=== PATIENT | male | born 1945 | race Caucasian/White ===

== ENCOUNTER 2021-10-05 16:59 | Inpatient (IN) | payer MEDICARE ==
[~2021-10-05] VITALS: Ht 180.3 cm; Wt 73.6 kg
[2021-10-05 17:21] LABS: BASO # 0.1 x10^3/uL (0.0-0.2); BASO % 1 % (0-3); EOS # 0.1 x10^3/uL (0.0-0.7); EOS % 1 % (0-3); HEMATOCRIT 43.1 % (39.0-53.0); HEMOGLOBIN 14.5 g/dL (13.0-17.5); LYMPH # 1.5 x10^3/uL (1.0-4.8); LYMPH % 26 % (24-48); MEAN CORPUSCULAR HEMOGLOBIN 34 pg (25-35); MEAN CORPUSCULAR HGB CONC 34 g/dL (31-37); MEAN CORPUSCULAR VOLUME 100 fL (79-100); MONO # 0.9 x10^3/uL (0.0-1.1); MONO % 15 % (0-9); NEUT # 3.4 x10^3/uL (1.8-7.7); NEUT % 58 % (31-73); PLATELET COUNT 289 x10^3/uL (140-400); RED BLOOD COUNT 4.32 x10^6/uL (4.30-5.70); RED CELL DISTRIBUTION WIDTH 14.7 % (11.5-14.5); WHITE BLOOD COUNT 5.9 x10^3/uL (4.0-11.0)
--- NOTE | 2021-10-05 17:25 | RAD ---
EXAM: AP View of the chest DATE: 10/05/2021 5:17 PM INDICATION: Reason: SOA / Spl. Instructions: / History: COMPARISON: No Prior FINDINGS: Heart is mildly enlarged. Aortic calcifications are seen. Bilateral perihilar and lung base airspace opacities likely consolidative process such as pneumonia. Small pleural effusions. No pneumothorax. IMPRESSION: Cardiac megaly with bilateral parenchymal opacities and pleural effusions may be seen with pulmonary edema. Multifocal consolidative process such as pneumonia could also have this appearance but is felt to be less likely. Electronically signed by: Jak Ruelas MD (10/05/2021 5:22 PM) [facility]
[2021-10-05 17:34] LABS: CALCIUM 8.4 mg/dL (8.5-10.1); CREATININE 0.9 mg/dL (0.7-1.3); GFR 82.3; POTASSIUM 4.1 mmol/L (3.5-5.1)
[2021-10-05 17:39] LABS: ALBUMIN 3.4 g/dL (3.4-5.0); ALBUMIN/GLOBULIN RATIO 0.9 (1.0-1.7); MAGNESIUM 2.1 mg/dL (1.8-2.4); TOTAL BILIRUBIN 0.4 mg/dL (0.2-1.0); TOTAL PROTEIN 7.2 g/dL (6.4-8.2)
--- NOTE | 2021-10-05 17:40 | PHYS DOC ---
Past Medical History Past Surgical History: Splenectomy, Other Additional Past Surgical Histo: L leg, (UZMA PICHARDO DO) Smoking Status: Never Smoker Alcohol Use: None (UZMA PICHARDO DO) General Adult EDM: Chief Complaint: SHORTNESS OF BREATH HPI: HPI: Patient is a 75 year old male who present to ER for evaluation of cough, trouble breathing off and on for 1 month. Patient went to see a doctor today due to trouble breathing, they did an EKG in the clinic, showed left bundle branch block so they sent him here for evaluation. Patient denies any chest pain, no abdominal pain, no nausea vomiting. Patient denies any history of heart problem. Patient is not a smoker. Patient said he was vaccinated for COVID-19 (UZMA PICHARDO DO) Review of Systems: Review of Systems: Constitutional: Denies fever or chills. [] Eyes: Denies change in visual acuity. [] HENT: Denies nasal congestion or sore throat. [] Respiratory: Positive for cough and trouble breathing. Cardiovascular: Denies chest pain or edema. [] GI: Denies abdominal pain, nausea, vomiting, bloody stools or diarrhea. [] : Denies dysuria. [] Musculoskeletal: Denies back pain or joint pain. [] Integument: Denies rash. [] Neurologic: Denies headache, focal weakness or sensory changes. [] Endocrine: Denies polyuria or polydipsia. [] Lymphatic: Denies swollen glands. [] Psychiatric: Denies depression or anxiety. [] (UZMA PICHARDO DO) Heart Score: C/O Chest Pain: N/A Risk Factors: Risk Factors: DM, Current or recent (<one month) smoker, HTN, HLP, family history of CAD, obesity. Risk Scores: Score 0 - 3: 2.5% MACE over next 6 weeks - Discharge Home Score 4 - 6: 20.3% MACE over next 6 weeks - Admit for Clinical Observation Score 7 - 10: 72.7% MACE over next 6 weeks - Early Invasive Strategies (UZMA PICHARDO DO) Allergies: Allergies: Allergies Coded Allergies Type Severity Reaction Last Updated Verified No Known Drug Allergies 10/05/21 No (UZMA PICHARDO DO) Physical Exam: PE: Constitutional: Well developed, well nourished, no acute distress, non-toxic appearance. [] HENT: Normocephalic, atraumatic, bilateral external ears normal, oropharynx moist, no oral exudates, nose normal. [] Eyes: PERRLA, EOMI, conjunctiva normal, no discharge. [] Neck: Normal range of motion, no tenderness, supple, no stridor. [] Cardiovascular:Heart rate regular rhythm, no murmur [] Lungs & Thorax: Bilateral breath sounds with crackles at lung bases to auscultation Abdomen: Bowel sounds normal, soft, no tenderness, no masses, no pulsatile masses. [] Skin: Warm, dry, no erythema, no rash. [] Back: No tenderness, no CVA tenderness. [] Extremities: No tenderness, no cyanosis, no clubbing, ROM intact, no edema. [] Neurologic: Alert and oriented X 3, normal motor function, normal sensory function, no focal deficits noted. [] Psychologic: Affect normal, judgement normal, mood normal. [] (UZMA PICHARDO DO) PE: Constitutional: Well developed, well nourished, no acute distress HENT: Normocephalic, atraumatic Eyes: Conjunctiva normal, no discharge Neck: Normal range of motion, supple Lungs & Thorax: No respiratory distress, equal chest rise and fall Abdomen: Soft, no tenderness Skin: Warm, dry, no erythema, no rash Extremities: No tenderness, ROM intact, trace BLE edema Neurologic: Alert and oriented X 3, no focal deficits noted Psychologic: Affect normal, judgment normal (HAO LUNDBERG DO) Current Patient Data: Labs: Laboratory Tests Test 10/05/21 17:08 White Blood Count 5.9 x10^3/uL (4.0-11.0) Red Blood Count 4.32 x10^6/uL (4.30-5.70) Hemoglobin 14.5 g/dL (13.0-17.5) Hematocrit 43.1 % (39.0-53.0) Mean Corpuscular Volume 100 fL (79-100) Mean Corpuscular Hemoglobin 34 pg (25-35) Mean Corpuscular Hemoglobin Concent 34 g/dL (31-37) Red Cell Distribution Width 14.7 % (11.5-14.5) H Platelet Count 289 x10^3/uL (140-400) Neutrophils (%) (Auto) 58 % (31-73) Lymphocytes (%) (Auto) 26 % (24-48) Monocytes (%) (Auto) 15 % (0-9) H Eosinophils (%) (Auto) 1 % (0-3) Basophils (%) (Auto) 1 % (0-3) Neutrophils # (Auto) 3.4 x10^3/uL (1.8-7.7) Lymphocytes # (Auto) 1.5 x10^3/uL (1.0-4.8) Monocytes # (Auto) 0.9 x10^3/uL (0.0-1.1) Eosinophils # (Auto) 0.1 x10^3/uL (0.0-0.7) Basophils # (Auto) 0.1 x10^3/uL (0.0-0.2) Sodium Level 133 mmol/L (136-145) L Potassium Level 4.1 mmol/L (3.5-5.1) Chloride Level 96 mmol/L (98-107) L Carbon Dioxide Level 27 mmol/L (21-32) Anion Gap 10 (6-14) Blood Urea Nitrogen 7 mg/dL (8-26) L Creatinine 0.9 mg/dL (0.7-1.3) Estimated GFR (Cockcroft-Gault) 82.3 BUN/Creatinine Ratio 8 (6-20) Glucose Level 102 mg/dL (70-99) H Calcium Level 8.4 mg/dL (8.5-10.1) L Magnesium Level Pending Total Bilirubin Pending Aspartate Amino Transferase (AST) Pending Alanine Aminotransferase (ALT) Pending Alkaline Phosphatase Pending Total Protein Pending Albumin Pending Albumin/Globulin Ratio Pending Laboratory Tests 10/05/21 17:08 Laboratory Tests 10/05/21 17:08 Vital Signs: Vital Signs Date Time Temp Pulse Resp B/P (MAP) Pulse Ox O2 Delivery O2 Flow Rate FiO2 10/05/21 16:59 97.7 79 16 164/115 (131) 97 Room Air 97.7 (UZMA PICHARDO DO) EKG: EKG: EKG was done at 1704, heart rate 108 bpm, sinus tachycardia, left bundle branch block. (UZMA PICHARDO DO) Radiology/Procedures: Radiology/Procedures: [][facility] [address] [place] [address] IMAGING REPORT Signed PATIENT: JESSICA MALDONADO BACCOUNT: [id number] : 1945 LOCATION: ER AGE: 75 SEX: M EXAM STATUS: PRE ER ORD. PHYSICIAN: UZMA PICHARDO DO REASON: SOA PROCEDURE: PORTABLE CHEST 1V EXAM: AP View of the chest DATE: 10/05/2021 5:17 PM INDICATION: Reason: SOA / Spl. Instructions: / History: COMPARISON: No Prior FINDINGS: Heart is mildly enlarged. Aortic calcifications are seen. Bilateral perihilar and lung base airspace opacities likely consolidative process such as pneumonia. Small pleural effusions. No pneumothorax. IMPRESSION: Cardiac megaly with bilateral parenchymal opacities and pleural effusions may be seen with pulmonary edema. Multifocal consolidative process such as pneumonia could also have this appearance but is felt to be less likely. Electronically signed by: Jak Hogan MD (10/05/2021 5:22 PM) [facility] DICTATED and SIGNED BY: JAK HOGAN MD DATE: 10/05/21 [id number] (UZMA PICHARDO DO) Radiology/Procedures: PROCEDURE: CT ANGIOGRAPHY CHEST CTA CHEST History: Shortness of breath. Cough. Technique: CT of the chest was performed with intravenous contrast. PE protocol. Maximum intensity projection coronal and sagittal reconstructions were perform ed. Exposure: One or more of the following individualized dose reduction techniques were utilized for this examination: 1. Automated exposure control 2. Adjustment of the mA and/or kV according to patient size 3. Use of iterative reconstruction technique. Comparison: None Findings: Chest: No central pulmonary embolism. Evaluation of distal pulmonary emboli is degraded by respiratory motion. The aorta is not opacified with contrast for evaluation. Mild atheromatous plaque within the aorta. Coronary artery calcifications. No pathologic lymphadenopathy. Large left and moderate right pleural effusion with adjacent atelectasis. Left lower lobe consolidations and groundglass opacities. No pneumothorax. Calcified pulmonary nodules, likely prior granulomatous disease. Bronchial wall thi ckening. Upper abdomen: Reflux of contrast into the IVC and hepatic veins. Postoperative changes left upper quadrant. 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 Impression: 1. No central pulmonary embolus although evaluation for distal emboli is degraded by respiratory motion. 2. Large left and moderate right pleural effusion with adjacent atelectasis. 3. Left lower lobe consolidations and groundglass opacities, may represent pneumonia or additional atelectasis. Recommend follow-up to ensure resolution. 4. Reflux of contrast into the IVC and hepatic veins, may indicate right heart dysfunction. Electronically signed by: You Ruff DO (10/05/2021 6:30 PM) [facility] (HAO LUNDBERG DO) Course & Med Decision Making: Course & Med Decision Making Pertinent Labs and Imaging studies reviewed. (See chart for details) Patient is a 75-year-old male who present to ER for evaluation of cough and trouble breathing off and on for 1 month. Patient says sometimes when he coughed he noticed some trace of blood IN THE SPIT. Patient denies any history of coronary ARTERY disease. EKG showed left bundle branch block today. Patient denies any chest pain, chest x-ray show evidence of pulmonary edema and cardiomegaly. Patient IS not hypoxic. I will obtain a CT angiogram of his chest for further evaluation treatment. Patient care was endorsed to the incoming physician at shift change Dr. Hao Lundberg. (UZMA PICHARDO DO) Course & Med Decision Making 1800-signout received from Dr. Pichardo for patient sent from PCPs office secondary to abnormal EKG. EKG had appeared to note new onset left bundle branch block. Patient has had 3-week history of progressive shortness of breath/dyspnea with exertion. Labs had previously been obtained with significantly elevated BNP. Initial troponin within normal limits. D-dimer elevated. CTA chest pending. Patient seen and evaluated by myself. CTA chest without signs of acute PE. Pleural effusions and signs of vascular congestion noted. Lasix and aspirin therefore provided. Patient requiring admission for further evaluation and treatment with cardiology consultation. Discussed with Dr. Butler (hospitalist) who is in agreement with admission. Consultation to cardiology ordered. Discussed findings and plan with patient and family, who acknowledge understanding and agreement. (HAO LUNDBERG DO) Dragon Disclaimer: Dragon Disclaimer: This electronic medical record was generated, in whole or in part, using a voice recognition dictation system. (UZMA PICHARDO DO) Departure Departure Impression: Primary Impression: New onset of congestive heart failure Additional Impression: Left bundle branch block (LBBB) on electrocardiogram Disposition: 09 ADMITTED INPATIENT Admitting Physician: DEISY Mao) (HAO LUNDBERG DO) Condition: STABLE UZMA PICHARDO DO Oct 05, 2021 17:39 HAO LUNDBERG DO Oct 05, 2021 18:26
[2021-10-05] MEDS ORDERED: IOHEXOL 350 MG/ML 100 ML VIAL. IV ONE (18:00)
--- NOTE | 2021-10-05 18:32 | RAD ---
CTA CHEST History: Shortness of breath. Cough. Technique: CT of the chest was performed with intravenous contrast. PE protocol. Maximum intensity pr ojection coronal and sagittal reconstructions were performed. Exposure: One or more of the following individualized dose reduction techniques were utilized for thi s examination: 1. Automated exposure control 2. Adjustment of the mA and/or kV according to patient size 3. Use of iterative reconstruction technique. Comparison: None Findings: Chest: No central pulmonary embolism. Evaluation of distal pulmonary emboli is degraded by respirator y motion. The aorta is not opacified with contrast for evaluation. Mild atheromatous plaque within th e aorta. Coronary artery calcifications. No pathologic lymphadenopathy. Large left and moderate right pleural effusion with adjacent atelectasis. Left lower lobe consolidati ons and groundglass opacities. No pneumothorax. Calcified pulmonary nodules, likely prior granulomato us disease. Bronchial wall thickening. Upper abdomen: Reflux of contrast into the IVC and hepatic veins. Postoperative changes left upper qu adrant. 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 Impression: 1. No central pulmonary embolus although evaluation for distal emboli is degraded by respiratory mot ion. 2. Large left and moderate right pleural effusion with adjacent atelectasis. 3. Left lower lobe consolidations and groundglass opacities, may represent pneumonia or additional a telectasis. Recommend follow-up to ensure resolution. 4. Reflux of contrast into the IVC and hepatic veins, may indicate right heart dysfunction. Electronically signed by: You Ruff DO (10/05/2021 6:30 PM) [facility]
[2021-10-05] MEDS ORDERED: ASPIRIN ENTERIC COATED 325 MG TABLET.DR. PO ONE (19:15)
[2021-10-05] MEDS ORDERED: FUROSEMIDE 40 MG/4 ML VIAL. IVP ONE (19:15)
[2021-10-05 20:10] VITALS: BP 156/91
[2021-10-05 22:31] VITALS: BP 113/73
--- NOTE | 2021-10-05 23:03 | EKG ---
[facility] [address] [place] [address] Test Date: 2021-10-05 Test Time: 17:04:18 Pat Name: JESSICA MALDONADO Department: Room: 648 1 Gender: M Engineering Drafter: : 1945 Requested By: UZMA PICHARDO Order Number: [id number] Reading MD: Lloyd Herrera Measurements Intervals [place] Rate: 108 P: 15 DE: 150 QRS: -8 QRSD: 110 T: 167 QT: 348 QTc: 470 Interpretive Statements SINUS TACHYCARDIA LEFT ATRIAL ABNORMALITY LEFTWARD AXIS QRS(T) CONTOUR ABNORMALITY CONSISTENT WITH ANTEROSEPTAL INFARCT PROBABLY OLD LEFT VENTRICULAR HYPERTROPHY WITH REPOLARIZATION ABNORMALITIES Electronically Signed On 10-07-2021 18:44:24 [employer] by Lloyd Herrera
--- NOTE | 2021-10-05 23:53 | PDOC1 ---
History and Physical Date of Service: DOS: DATE: 10/05/21 TIME: 23:53 Chief Complaint: Chief Complain: Shortness of breath History of Present Illness: HPI: Patient is 75-year-old white male presented to the emergency room today due to 1 month history of difficulty breathing and nonproductive cough. Patient says symptoms have been worsening. Particularly over the past week. He went to his primary doctor today and an EKG was done that showed a left bundle branch block and he was sent here for further evaluation. Shortness of breath patient pretty asymptomatic no chest pain. Says he sometimes gets swelling in his calves but he was not having any at the moment. Has received all Covid vaccines. No history of heart problems he is aware of. In the ER work-up showed elevated BNP and chest x-ray showed bilateral pleural effusions and some hepatic reflux concerning for right heart disease. Admitted for further work-up. Past Medical/Surgical History: PMH/PSH: Splenectomy Allergies: Allergies: Coded Allergies: No Known Drug Allergies (Unverified , 10/05/21) Family History: Family History: Denies any known Social History: Social History: Denies alcohol tobacco drug use Current Medications: Current Medications Current Medications Iohexol (Omnipaque 350 Mg/ml) 100 ml 1X ONCE IV Last administered on 10/05/21at 18:12; Start 10/05/21 at 18:00; Stop 10/05/21 at 18:01; Status DC Furosemide (Lasix) 40 mg 1X ONCE IVP Last administered on 10/05/21at 19:19; Start 10/05/21 at 19:15; Stop 10/05/21 at 19:16; Status DC Aspirin (Ecotrin) 325 mg 1X ONCE PO Last administered on 10/05/21at 19:18; Start 10/05/21 at 19:15; Stop 10/05/21 at 19:16; Status DC Influenza Virus Vaccine Quadrival (Flulaval Quad [id number] Syringe) 0.5 ml ONCE ONCE VAX IM ; Start 10/06/21 at 09:00; Stop 10/06/21 at 09:01 Ondansetron HCl (Zofran) 4 mg PRN Q6HRS PRN IVP NAUSEA/VOMITING; Start 10/06/21 at 00:00; Status UNV Calcium Carbonate/ Glycine (Tums) 500 mg PRN Q3HRS PRN PO UPSET STOMACH; Start 10/06/21 at 00:00; Status UNV Zolpidem Tartrate (Ambien) 5 mg PRN QHS PRN PO INSOMNIA, MAY REPEAT IN 1HR; Start 10/06/21 at 00:00; Status UNV Info (Non-Icu Electrolyte Protocol) 1 ea PRN DAILY PRN MC SEE COMMENTS; Start 10/06/21 at 00:00; Status UNV Oxycodone/ Acetaminophen (Percocet 5/325) 1 tab PRN Q4HRS PRN PO MILD PAIN, 1ST CHOICE; Start 10/06/21 at 00:00; Status UNV Oxycodone/ Acetaminophen (Percocet 5/325) 2 tab PRN Q4HRS PRN PO MODERATE PAIN, SEVERE PAIN; Start 10/06/21 at 00:00; Status UNV Acetaminophen (Tylenol) 650 mg PRN Q6HRS PRN PO Headaches, Temp > 101.5F; Start 10/06/21 at 00:00; Status UNV Senna/Docusate Sodium (Senna Plus) 1 tab BID PO ; Start 10/06/21 at 09:00; Status UNV Heparin Sodium (Porcine) (Heparin Sodium) 5,000 unit Q8HRS SQ ; Start 10/06/21 at 06:00; Status UNV ROS: Review of Systems Review of System Unless noted in HPI 14 point review systems was negative Physical Exam: Vital Signs: Vital Signs Date Time Temp Pulse Resp B/P (MAP) Pulse Ox O2 Delivery O2 Flow Rate FiO2 10/05/21 22:31 98.1 98 18 113/73 (86) 96 Room Air 98.1 Physcial Exam: GEN: No apparent distress. Alert and oriented HEENT: Normal cephalic, atraumatic, external auditory canals are patent EYES: Extraocular muscles are intact, pupil are equally round and reactive to light and accommodation MUSCULOSKELETAL: Well developed , well nourished, good range of motion ENDOCRINE: No thyromegaly was palpated LYMPHATICS: No cervical chain or axillary nodes were noted HEMATOPOIETIC: No bruising NECK: Supple, no JVD, no thyromegaly was noted LUNGS: Clear to auscultation in all lung lopez without rhonchi or wheezing HEART: RRR, S!, S2 present. Peripheral pulses intact, no obvious murmurs noted ABDOMEN: Soft, nontender. Positive bowel sounds, no organomegaly, normal bowel sounds EXTREMITIES: Without clubbing, cyanosis, or edema. Pedal pulses intact. Negative Homans sign NEUROLOGIC: Normal speech and tone. A&O x 3, moves all extremities, no obvious focal deficits PSYCHIATRIC: Normal affect, normal mood. Stable SKIN: No ulcerations or rashes, good skin turgor, no jaundice VASCULAR: Good capillary refill, neurovascular bundle appears to be intact Labs: Labs: Laboratory Tests Test 10/05/21 15:14 10/05/21 17:08 Lactic Acid Level 1.2 mmol/L (0.4-2.0) White Blood Count 5.9 x10^3/uL (4.0-11.0) Red Blood Count 4.32 x10^6/uL (4.30-5.70) Hemoglobin 14.5 g/dL (13.0-17.5) Hematocrit 43.1 % (39.0-53.0) Mean Corpuscular Volume 100 fL (79-100) Mean Corpuscular Hemoglobin 34 pg (25-35) Mean Corpuscular Hemoglobin Concent 34 g/dL (31-37) Red Cell Distribution Width 14.7 % (11.5-14.5) Platelet Count 289 x10^3/uL (140-400) Neutrophils (%) (Auto) 58 % (31-73) Lymphocytes (%) (Auto) 26 % (24-48) Monocytes (%) (Auto) 15 % (0-9) Eosinophils (%) (Auto) 1 % (0-3) Basophils (%) (Auto) 1 % (0-3) Neutrophils # (Auto) 3.4 x10^3/uL (1.8-7.7) Lymphocytes # (Auto) 1.5 x10^3/uL (1.0-4.8) Monocytes # (Auto) 0.9 x10^3/uL (0.0-1.1) Eosinophils # (Auto) 0.1 x10^3/uL (0.0-0.7) Basophils # (Auto) 0.1 x10^3/uL (0.0-0.2) D-Dimer (Gracie) 1.51 ug/mlFEU (0.00-0.50) Sodium Level 133 mmol/L (136-145) Potassium Level 4.1 mmol/L (3.5-5.1) Chloride Level 96 mmol/L (98-107) Carbon Dioxide Level 27 mmol/L (21-32) Anion Gap 10 (6-14) Blood Urea Nitrogen 7 mg/dL (8-26) Creatinine 0.9 mg/dL (0.7-1.3) Estimated GFR (Cockcroft-Gault) 82.3 BUN/Creatinine Ratio 8 (6-20) Glucose Level 102 mg/dL (70-99) Calcium Level 8.4 mg/dL (8.5-10.1) Magnesium Level 2.1 mg/dL (1.8-2.4) Total Bilirubin 0.4 mg/dL (0.2-1.0) Aspartate Amino Transf (AST/SGOT) 24 U/L (15-37) Alanine Aminotransferase (ALT/SGPT) 33 U/L (16-63) Alkaline Phosphatase 74 U/L (46-116) Troponin I High Sensitivity 18 ng/L (4-75) JT-Pwh-C-Type Natriuretic Peptide 21413 pg/mL (0-449) Total Protein 7.2 g/dL (6.4-8.2) Albumin 3.4 g/dL (3.4-5.0) Albumin/Globulin Ratio 0.9 (1.0-1.7) Laboratory Tests Test 10/05/21 15:14 10/05/21 17:08 Lactic Acid Level 1.2 mmol/L (0.4-2.0) White Blood Count 5.9 x10^3/uL (4.0-11.0) Red Blood Count 4.32 x10^6/uL (4.30-5.70) Hemoglobin 14.5 g/dL (13.0-17.5) Hematocrit 43.1 % (39.0-53.0) Mean Corpuscular Volume 100 fL (79-100) Mean Corpuscular Hemoglobin 34 pg (25-35) Mean Corpuscular Hemoglobin Concent 34 g/dL (31-37) Red Cell Distribution Width 14.7 % (11.5-14.5) Platelet Count 289 x10^3/uL (140-400) Neutrophils (%) (Auto) 58 % (31-73) Lymphocytes (%) (Auto) 26 % (24-48) Monocytes (%) (Auto) 15 % (0-9) Eosinophils (%) (Auto) 1 % (0-3) Basophils (%) (Auto) 1 % (0-3) Neutrophils # (Auto) 3.4 x10^3/uL (1.8-7.7) Lymphocytes # (Auto) 1.5 x10^3/uL (1.0-4.8) Monocytes # (Auto) 0.9 x10^3/uL (0.0-1.1) Eosinophils # (Auto) 0.1 x10^3/uL (0.0-0.7) Basophils # (Auto) 0.1 x10^3/uL (0.0-0.2) D-Dimer (Gracie) 1.51 ug/mlFEU (0.00-0.50) Sodium Level 133 mmol/L (136-145) Potassium Level 4.1 mmol/L (3.5-5.1) Chloride Level 96 mmol/L (98-107) Carbon Dioxide Level 27 mmol/L (21-32) Anion Gap 10 (6-14) Blood Urea Nitrogen 7 mg/dL (8-26) Creatinine 0.9 mg/dL (0.7-1.3) Estimated GFR (Cockcroft-Gault) 82.3 BUN/Creatinine Ratio 8 (6-20) Glucose Level 102 mg/dL (70-99) Calcium Level 8.4 mg/dL (8.5-10.1) Magnesium Level 2.1 mg/dL (1.8-2.4) Total Bilirubin 0.4 mg/dL (0.2-1.0) Aspartate Amino Transf (AST/SGOT) 24 U/L (15-37) Alanine Aminotransferase (ALT/SGPT) 33 U/L (16-63) Alkaline Phosphatase 74 U/L (46-116) Troponin I High Sensitivity 18 ng/L (4-75) VB-Wgv-E-Type Natriuretic Peptide 67246 pg/mL (0-449) Total Protein 7.2 g/dL (6.4-8.2) Albumin 3.4 g/dL (3.4-5.0) Albumin/Globulin Ratio 0.9 (1.0-1.7) Assessment/Plan Assessment/Plan Ongoing shortness of breath secondary to possible new onset congestive heart failure, bundle branch block. -Worsening shortness of breath for 1 month. Work-up here showing pleural effusions in his lungs. -Received dose of 40 IV Lasix in the emergency room. Will give 1 more overnight -Empiric antibiotics based upon imaging mild concern for a bacterial pneumonia -Cardiology consult -Echo ordered -Pulm consult regarding pleural effusions -DVT prophylaxis Cardiac diet Justifications for Admission Other Justification SHIKHA RODRIGUEZ MD Oct 05, 2021 23:53
[2021-10-06] VITALS (9 sets, daily range): BP systolic 113–151; BP diastolic 73–98
[2021-10-06] MEDS ORDERED: ELECTROLYTE (NON-ICU) PROTOCOL. MC PRN
[2021-10-06] MEDS ORDERED: cefTRIAXone IV Push 1 GM VIAL. IVP SCH
[2021-10-06] MEDS ORDERED: ZOLPIDEM 5 MG TABLET. PO PRN
[2021-10-06] MEDS ORDERED: ONDANSETRON PF 4 MG/2 ML VIAL. IVP PRN
[2021-10-06] MEDS ORDERED: CALCIUM CARBONATE 500 MG TAB.CHEW PO PRN
[2021-10-06] MEDS ORDERED: ACETAMINOPHEN 325 MG TABLET. PO PRN
[2021-10-06] MEDS ORDERED: oxyCODONE/APAP 5/325 1 TAB TABLET PO PRN ×2
[2021-10-06] MEDS: HEPARIN for SUB-Q USE 5,000 UNIT/ML VIAL. SQ SCH ×3 (06:10→21:47)
[2021-10-06] MEDS ORDERED: FLU VACC QUAD 21-22 (6MOS+) PF 0.5 ML SYRINGE. VAX IM ONE (09:00)
[2021-10-06] MEDS ORDERED: DOXYCYCLINE HYCLATE 100 MG TABLET PO SCH (09:00)
--- NOTE | 2021-10-06 10:38 | CARD ---
MR#: [id number] Date of Study: 10/06/2021 Ordering Physician: SHIKHA RODRIGUEZ, Referring Physician: SHIKHA RODRIGUEZ, Tech: Suzie Richey [facility] APPROVED REPORT EXAM: Two-dimensional and M-mode echocardiogram with Doppler and color Doppler. Other Information Quality : AverageHR: 91bpm Rhythm : LBBB INDICATION Congestive Heart Failure 2D DIMENSIONS RVDd3.5 (2.9-3.5cm)Left Atrium(2D)4.3 (1.6-4.0cm) IVSd1.1 (0.7-1.1cm)Aortic Root(2D)3.4 (2.0-3.7cm) LVDd5.5 (3.9-5.9cm)LVOT Diameter2.0 (1.8-2.4cm) PWd1.0 (0.7-1.1cm)LVDs5.2 (2.5-4.0cm) FS (%) 5.4 %SV18.0 ml LVEF(%)12.1 (>50%) Aortic Valve AoV Peak David.231.7cm/sAoV VTI43.6cm AO Peak GR.21.5mmHgLVOT Peak David.123.3cm/s AO Mean GR.12mmHgAVA (VMAX)1.65cm2 Mitral Valve MV E Rmwdbspp244.4cm/sMV DECEL [id number] MV A Tribjqxk19.3cm/sE/A Ratio1.2 Pulmonary Valve PV Peak Gwtxmxzv518.8cm/s Tricuspid Valve TR P. Txzdxoah463kw/sTR Peak Gr.48mmHg LEFT VENTRICLE The left ventricle is normal size. There is normal left ventricular wall thickness. The ejection frac tion is severely impaired. Estimated ejection fraction 20%. There is global hypokinesis of the left v entricle. Tissue Doppler imaging reveals severe left ventricular diastolic dysfunction. RIGHT VENTRICLE The right ventricle is normal size. There is normal right ventricular wall thickness. The right ventr icular systolic function is normal. ATRIA The left atrium size is normal. The right atrium size is normal. The interatrial septum is intact wit h no evidence for an atrial septal defect or patent foramen ovale as noted on 2-D or Doppler imaging. AORTIC VALVE The aortic valve is calcified and displays decreased opening. Doppler and Color Flow revealed no sign ificant aortic regurgitation. There is probable mild valvular aortic stenosis. MITRAL VALVE The mitral valve is normal in structure and function. There is no evidence of mitral valve prolapse. There is no mitral valve stenosis. Doppler and Color-flow revealed mild mitral regurgitation. TRICUSPID VALVE The tricuspid valve is normal in structure and function. Doppler and Color Flow revealed mild tricusp id regurgitation. Estimated PAP 60-65 mmHg. There is no tricuspid valve stenosis. PULMONIC VALVE Doppler and Color Flow revealed mild pulmonic valvular regurgitation. There is no pulmonic valvular s tenosis. GREAT VESSELS The aortic root is normal in size. The ascending aorta is normal in size. The IVC is dilated and ginger apses <50% with inspiration. PERICARDIAL EFFUSION There is no evidence of significant pericardial effusion. Critical Notification Critical Value: No <Conclusion> The ejection fraction is severely impaired. Estimated ejection fraction 20%. There is global hypokinesis of the left ventricle. The aortic valve is calcified and displays decreased opening. There is probable mild valvular aortic stenosis. Doppler and Color Flow revealed mild tricuspid regurgitation. Estimated PAP 60-65 mmHg. Signed by : Rickey Cordero, Electronically Approved : 10/06/2021 10:38:14
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
[2021-10-06] MEDS ORDERED: FUROSEMIDE 40 MG/4 ML VIAL. IVP ONE ×2 (11:00)
--- NOTE | 2021-10-06 11:16 | PDOC ---
[employer] PROGRESS NOTE Date of Service DOS: DATE: 10/06/21 TIME: 11:14 Chief Complaint Chief Complaint Probable new onset heart failure Bilateral pleural effusions greater on the left than the right Bundle branch block History of splenectomy Advanced age History of Present Illness History of Present Illness 10/06/2021 Patient seen and examined Discussed with RN Discussed with case management Chart reviewed I reviewed his chest x-ray with him and the nurse He does have bilateral pleural effusions He is scheduled to go to IR today for a left thoracentesis Vitals/I&O Vitals/I&O: Vital Signs Date Time Temp Pulse Resp B/P (MAP) Pulse Ox O2 Delivery O2 Flow Rate FiO2 10/06/21 10:23 98.5 84 18 114/77 (89) 93 Room Air 98.5 I & O 10/05/21 10/05/21 10/06/21 15:00 23:00 07:00 Output Total 400 ml 350 ml Balance -400 ml -350 ml Physical Exam General: Alert, Oriented X3, Cooperative, No acute distress Heart: Regular rate Extremities: No cyanosis, Other Skin: No breakdown, No significant lesion Labs Labs: Laboratory Tests Test 10/05/21 15:14 10/05/21 17:08 10/06/21 01:30 Lactic Acid Level 1.2 mmol/L (0.4-2.0) White Blood Count 5.9 x10^3/uL (4.0-11.0) Red Blood Count 4.32 x10^6/uL (4.30-5.70) Hemoglobin 14.5 g/dL (13.0-17.5) Hematocrit 43.1 % (39.0-53.0) Mean Corpuscular Volume 100 fL (79-100) Mean Corpuscular Hemoglobin 34 pg (25-35) Mean Corpuscular Hemoglobin Concent 34 g/dL (31-37) Red Cell Distribution Width 14.7 % (11.5-14.5) Platelet Count 289 x10^3/uL (140-400) Neutrophils (%) (Auto) 58 % (31-73) Lymphocytes (%) (Auto) 26 % (24-48) Monocytes (%) (Auto) 15 % (0-9) Eosinophils (%) (Auto) 1 % (0-3) Basophils (%) (Auto) 1 % (0-3) Neutrophils # (Auto) 3.4 x10^3/uL (1.8-7.7) Lymphocytes # (Auto) 1.5 x10^3/uL (1.0-4.8) Monocytes # (Auto) 0.9 x10^3/uL (0.0-1.1) Eosinophils # (Auto) 0.1 x10^3/uL (0.0-0.7) Basophils # (Auto) 0.1 x10^3/uL (0.0-0.2) D-Dimer (Gracie) 1.51 ug/mlFEU (0.00-0.50) Sodium Level 133 mmol/L (136-145) Potassium Level 4.1 mmol/L (3.5-5.1) Chloride Level 96 mmol/L (98-107) Carbon Dioxide Level 27 mmol/L (21-32) Anion Gap 10 (6-14) Blood Urea Nitrogen 7 mg/dL (8-26) Creatinine 0.9 mg/dL (0.7-1.3) Estimated GFR (Cockcroft-Gault) 82.3 BUN/Creatinine Ratio 8 (6-20) Glucose Level 102 mg/dL (70-99) Calcium Level 8.4 mg/dL (8.5-10.1) Magnesium Level 2.1 mg/dL (1.8-2.4) Total Bilirubin 0.4 mg/dL (0.2-1.0) Aspartate Amino Transf (AST/SGOT) 24 U/L (15-37) Alanine Aminotransferase (ALT/SGPT) 33 U/L (16-63) Alkaline Phosphatase 74 U/L (46-116) Troponin I High Sensitivity 18 ng/L (4-75) 19 ng/L (4-75) BG-Bxf-X-Type Natriuretic Peptide 86402 pg/mL (0-449) Total Protein 7.2 g/dL (6.4-8.2) Albumin 3.4 g/dL (3.4-5.0) Albumin/Globulin Ratio 0.9 (1.0-1.7) Assessment and Plan Assessmemt and Plan Problems Medical Problems: (1) Left bundle branch block (LBBB) on electrocardiogram Status: Acute (2) New onset of congestive heart failure Status: Acute Probable new onset heart failure Bilateral pleural effusions greater on the left than the right Bundle branch block History of splenectomy Advanced age Plan He is going to IR today for left thoracentesis For now continue cardiac monitoring Await cardiology input Home meds DVT prophylaxis IV Lasix Full code Trend labs Encourage p.o. intake Await echocardiogram Comment Review of Relevant I have reviewed the following items shanthi (where applicable) has been applied. Medications: Current Medications Medications (Trade) Dose Ordered Sig/Jesse Route PRN Reason Start Time Stop Time Status Last Admin Dose Admin Iohexol (Omnipaque 350 Mg/ml) 100 ml 1X ONCE IV 10/05/21 18:00 10/05/21 18:01 DC 10/05/21 18:12 Furosemide (Lasix) 40 mg 1X ONCE IVP 10/05/21 19:15 10/05/21 19:16 DC 10/05/21 19:19 Aspirin (Ecotrin) 325 mg 1X ONCE PO 10/05/21 19:15 10/05/21 19:16 DC 10/05/21 19:18 Heparin Sodium (Porcine) (Heparin Sodium) 5,000 unit Q8HRS SQ 10/06/21 06:00 10/06/21 06:10 Ceftriaxone Sodium (Rocephin) 1 gm Q24H IVP 10/06/21 00:00 10/06/21 10:28 DC 10/06/21 02:19 Doxycycline Hyclate (Vibra-Tab) 100 mg BID PO 10/06/21 09:00 10/06/21 10:28 DC 10/06/21 10:19 Furosemide (Lasix) 40 mg 1X ONCE IVP 10/06/21 00:00 10/06/21 00:01 DC 10/06/21 02:20 Justifications for Admission Other Justification JUSTO CARTWRIGHT III DO Oct 06, 2021 11:16
[2021-10-06 11:17] LABS: CHOLESTEROL/HDL RATIO 3.3
--- NOTE | 2021-10-06 11:21 | CONS ---
DATE OF CONSULTATION: 10/06/2021 PULMONARY CONSULTATION ATTENDING PHYSICIAN: Butch Butler MD REASON FOR CONSULTATION: Respiratory failure, congestive heart failure. HISTORY OF PRESENT ILLNESS: The patient is a 75-year-old male who has no significant tobacco history. He presented to the Emergency Room with 1-month history of shortness of breath, which has been progressive. 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 No fever, no chills, no chest pains. No leg edema. No history of deep vein thrombosis or pulmonary embolism. The patient was seen in the Emergency Room and a CTA chest was performed, which was reviewed by me. There was no evidence of pulmonary embolism. There are basilar pleural effusions, slightly more on the right than on the left. Certainly, they are not large as reported by radiologist. There is associated atelectasis. The patient had an echocardiogram done and ejection fraction is 20%. He is currently on room air. I have been asked to see him for further evaluation. He received 2 doses of Lasix. PAST MEDICAL HISTORY: Significant for splenectomy. No significant tobacco use. PAST SURGICAL HISTORY: No recent surgeries. FAMILY HISTORY: Noncontributory to lungs. SOCIAL HISTORY: No significant tobacco use. ALLERGIES: None. MEDICATIONS: Reviewed as listed in the MRAD. REVIEW OF SYSTEMS: Twelve-point review of system obtained. Pertinent positives discussed in my present illness, otherwise noncontributory. All systems that were negative were reviewed as well. PHYSICAL EXAMINATION: VITAL SIGNS: Reviewed. Blood pressure 151/94, afebrile, pulse ox 92% on room air. NECK: Supple, no JVD. LUNGS: With diminished breath sounds posteriorly at the bases. CARDIOVASCULAR: With a regular rate. ABDOMEN: Soft, nontender. EXTREMITIES: With trace edema. LABORATORY DATA: Reviewed. White cell count 5.9, hemoglobin 14.5 and platelets are 289. BUN 7 and creatinine 0.9. ProBNP is 18,000. IMPRESSION: 1. Dyspnea, which has been progressive in the last several weeks. This is secondary to acute systolic congestive heart failure. This is a patient who has an ejection fraction of 20%. 2. Severe cardiomyopathy with an ejection fraction of 20%. 3. Abnormal CT chest with bilateral pleural effusions. This is likely transudative effusions from congestive heart failure, slightly more on the left than on the right. Radiologist reported large effusion on the left. In my opinion, this is mild to moderate and a small effusion on the right. 4. No significant tobacco history. RECOMMENDATIONS: 1. The patient would need ischemic workup. His ejection fraction is 20%. Cardiology has been consulted and await their recommendation. 2. Continue diuresis while monitoring renal function. 3. The patient will benefit from thoracentesis and will order for the left side. He is agreeable to proceed. 4. Discontinue antibiotics. No clinical suspicion for pneumonia. 5. Continue subcutaneous heparin for DVT prophylaxis. 6. Discussed with RN and we will follow along with you. JASMYN DR: Kenia TID: [id number]
--- NOTE | 2021-10-06 16:01 | RAD ---
left Thoracentesis 10/06/2021 2:02 PM Clinical History: Left pleural effusion. Technique: Relative benefits risks and alternatives were discussed with the patient and/or their rep resentative. Written informed consent was obtained. The patient was placed in seated position. A leobardo eout procedure was performed. Sonographic assessment demonstrates a large pleural effusion. A site for skin entry was selected, and subsequently prepped and draped using sterile barrier technique. 1% lidocaine without epinepherine was administered for local anesthesia to the skin and subcutaenous tissues. A 5 Portuguese sheathed needle was passed into the pleural space. Clear yellow fluid was aspirated and t he catheter was connected to a vacuum. Approximately 1.2 liters of fluid were drained.The catheter wa s removed and adequate hemostasis was obtained. A sterile dressing was applied. The patient tolerate d the procedure well, without complications. Impression: Successful ultrasound guided left thoracentesis with removal removal of 1.2 L Electronically signed by: Kenroy Kwok MD (10/06/2021 3:58 PM) [id number]
[2021-10-06] MEDS: ASPIRIN ENTERIC COATED 81 MG TABLET.DR. PO SCH (16:44)
[2021-10-06] MEDS: CARVEDILOL 3.125 MG TABLET. PO SCH (16:44)
[2021-10-06] MEDS: SENNOSIDES/DOCUSATE 8.6/50MG TABLET. PO SCH ×2 (16:47→21:45)
[2021-10-07 02:25] VITALS: BP 124/86
[2021-10-07] MEDS: HEPARIN for SUB-Q USE 5,000 UNIT/ML VIAL. SQ SCH ×3 (06:00→21:27)
--- NOTE | 2021-10-07 06:33 | PDOC ---
PULMONARY PROGRESS NOTES DATE: 10/07/21 TIME: 06:31 Subjective feels better sob better has occ cough s/p thoracentesis 10/06 1.2 pleural fluid evacuated Vitals Vital Signs Date Time Temp Pulse Resp B/P (MAP) Pulse Ox O2 Delivery O2 Flow Rate FiO2 10/07/21 02:25 97.8 70 18 124/86 (99) 93 Room Air 97.8 ROS: No Nausea General: Alert HEENT: Other (nc at ) Lungs: Crackles Cardiovascular: S1, S2 Abdomen: Soft Neuro Exam: Alert Skin: Warm Labs Laboratory Tests Test 10/05/21 15:14 10/05/21 17:08 10/06/21 01:30 Lactic Acid Level 1.2 mmol/L (0.4-2.0) White Blood Count 5.9 x10^3/uL (4.0-11.0) Red Blood Count 4.32 x10^6/uL (4.30-5.70) Hemoglobin 14.5 g/dL (13.0-17.5) Hematocrit 43.1 % (39.0-53.0) Mean Corpuscular Volume 100 fL (79-100) Mean Corpuscular Hemoglobin 34 pg (25-35) Mean Corpuscular Hemoglobin Concent 34 g/dL (31-37) Red Cell Distribution Width 14.7 % (11.5-14.5) Platelet Count 289 x10^3/uL (140-400) Neutrophils (%) (Auto) 58 % (31-73) Lymphocytes (%) (Auto) 26 % (24-48) Monocytes (%) (Auto) 15 % (0-9) Eosinophils (%) (Auto) 1 % (0-3) Basophils (%) (Auto) 1 % (0-3) Neutrophils # (Auto) 3.4 x10^3/uL (1.8-7.7) Lymphocytes # (Auto) 1.5 x10^3/uL (1.0-4.8) Monocytes # (Auto) 0.9 x10^3/uL (0.0-1.1) Eosinophils # (Auto) 0.1 x10^3/uL (0.0-0.7) Basophils # (Auto) 0.1 x10^3/uL (0.0-0.2) D-Dimer (Gracie) 1.51 ug/mlFEU (0.00-0.50) Sodium Level 133 mmol/L (136-145) Potassium Level 4.1 mmol/L (3.5-5.1) Chloride Level 96 mmol/L (98-107) Carbon Dioxide Level 27 mmol/L (21-32) Anion Gap 10 (6-14) Blood Urea Nitrogen 7 mg/dL (8-26) Creatinine 0.9 mg/dL (0.7-1.3) Estimated GFR (Cockcroft-Gault) 82.3 BUN/Creatinine Ratio 8 (6-20) Glucose Level 102 mg/dL (70-99) Calcium Level 8.4 mg/dL (8.5-10.1) Magnesium Level 2.1 mg/dL (1.8-2.4) Total Bilirubin 0.4 mg/dL (0.2-1.0) Aspartate Amino Transf (AST/SGOT) 24 U/L (15-37) Alanine Aminotransferase (ALT/SGPT) 33 U/L (16-63) Alkaline Phosphatase 74 U/L (46-116) Troponin I High Sensitivity 18 ng/L (4-75) 19 ng/L (4-75) WB-Xyu-Z-Type Natriuretic Peptide 53701 pg/mL (0-449) Total Protein 7.2 g/dL (6.4-8.2) Albumin 3.4 g/dL (3.4-5.0) Albumin/Globulin Ratio 0.9 (1.0-1.7) Triglycerides Level 63 mg/dL (0-150) Cholesterol Level 115 mg/dL (0-200) LDL Cholesterol, Calculated 67 mg/dL (0-100) VLDL Cholesterol, Calculated 13 mg/dL (0-40) Non-HDL Cholesterol Calculated 80 mg/dL (0-129) HDL Cholesterol 35 mg/dL (40-60) Cholesterol/HDL Ratio 3.3 Thyroid Stimulating Hormone (TSH) 1.891 uIU/mL (0.358-3.74) Impression . IMPRESSION: 1. Dyspnea, which has been progressive in the last several weeks. This is secondary to acute systolic congestive heart failure. This is a patient who has an ejection fraction of 20%. 2. Severe cardiomyopathy with an ejection fraction of 20%. 3. Abnormal CT chest with bilateral pleural effusions. This is likely transudative effusions from congestive heart failure, slightly more on the left than on the right. Radiologist reported large effusion on the left. In my opinion, this is mild to moderate and a small effusion on the right. 4. No significant tobacco history. Plan . RECOMMENDATIONS: 1. LHC on saturday . His ejection fraction is 20%. 2. Continue diuresis while monitoring renal function. 3. s/p thoracentesis 10/06 1.2 pleural fluid evacuated fu pleural fluid studies . 4. monitor off antibiotics. 5. Continue subcutaneous heparin for DVT prophylaxis. 6. Discussed with pt and we will follow along with you. HARLEY CALABRESE MD Oct 07, 2021 06:33
[2021-10-07 07:00] VITALS: BP 109/60
[2021-10-07] MEDS: FUROSEMIDE 40 MG/4 ML VIAL. IVP SCH (08:20)
[2021-10-07] MEDS: LISINOPRIL 5 MG TABLET. PO SCH (08:21)
[2021-10-07] MEDS: ASPIRIN ENTERIC COATED 81 MG TABLET.DR. PO SCH (08:21)
[2021-10-07] MEDS: SENNOSIDES/DOCUSATE 8.6/50MG TABLET. PO SCH ×2 (08:21→21:26)
[2021-10-07] MEDS: CARVEDILOL 3.125 MG TABLET. PO SCH ×2 (08:22→17:16)
[2021-10-07 11:00] VITALS: BP 129/73
[2021-10-07 11:06] LABS: BILIRUBIN,URINE NEGATIVE (NEG); CLARITY,URINE CLEAR; COLOR,URINE YELLOW; NITRITE,URINE NEGATIVE (NEG); PROTEIN,URINE NEGATIVE (NEG-TRACE); UROBILINOGEN,URINE 0.2 mg/dL (0.2 mg/dL)
[2021-10-07 11:09] LABS: BACTERIA,URINE 0 /HPF (0-FEW); RBC,URINE OCC /HPF (0-2); WBC,URINE 0 /HPF (0-4)
--- NOTE | 2021-10-07 13:22 | PDOC ---
PROGRESS NOTES Date of Service DATE: 10/07/21 TIME: 13:20 Subjective Subjective Patient seen and examined Objective Objective Vital Signs Date Time Temp Pulse Resp B/P (MAP) Pulse Ox O2 Delivery O2 Flow Rate FiO2 10/07/21 11:00 97.6 73 18 129/73 (91) 92 Room Air 97.6 Intake and Output 10/07/21 07:00 Intake Total 1100 ml Output Total 2800 ml Balance -1700 ml Intake Oral 1100 ml Output Urine Total 1650 ml Drainage Total 1150 ml Physical Exam Abdomen: Normal bowel sounds Heart: Regular rate General: mild distress Lungs: Other (Mildly decreased breath sounds) Assessment Assessment Problems Medical Problems: (1) Left bundle branch block (LBBB) on electrocardiogram Status: Acute (2) New onset of congestive heart failure Status: Acute 1. Acute systolic/diastolic CHF: The patient is feeling better today on present medications. We will continue present treatment. 2. Cardiomyopathy: EF at 20% . Clinically mildly improved. Tentative plan is for a heart catheterization on Saturday. 3. Bilateral pleural effusion: large on left and moderate to right. Followed by the pulmonary service. Upcoming thoracentesis. 4. Pulmonary HTN Comment Review of Relevant I have reviewed the following items shanthi (where applicable) has been applied. Labs Laboratory Tests Test 10/05/21 15:14 10/05/21 17:08 10/06/21 01:30 10/06/21 14:00 Lactic Acid Level 1.2 mmol/L (0.4-2.0) White Blood Count 5.9 x10^3/uL (4.0-11.0) Red Blood Count 4.32 x10^6/uL (4.30-5.70) Hemoglobin 14.5 g/dL (13.0-17.5) Hematocrit 43.1 % (39.0-53.0) Mean Corpuscular Volume 100 fL (79-100) Mean Corpuscular Hemoglobin 34 pg (25-35) Mean Corpuscular Hemoglobin Concent 34 g/dL (31-37) Red Cell Distribution Width 14.7 % (11.5-14.5) Platelet Count 289 x10^3/uL (140-400) Neutrophils (%) (Auto) 58 % (31-73) Lymphocytes (%) (Auto) 26 % (24-48) Monocytes (%) (Auto) 15 % (0-9) Eosinophils (%) (Auto) 1 % (0-3) Basophils (%) (Auto) 1 % (0-3) Neutrophils # (Auto) 3.4 x10^3/uL (1.8-7.7) Lymphocytes # (Auto) 1.5 x10^3/uL (1.0-4.8) Monocytes # (Auto) 0.9 x10^3/uL (0.0-1.1) Eosinophils # (Auto) 0.1 x10^3/uL (0.0-0.7) Basophils # (Auto) 0.1 x10^3/uL (0.0-0.2) D-Dimer (Gracie) 1.51 ug/mlFEU (0.00-0.50) Sodium Level 133 mmol/L (136-145) Potassium Level 4.1 mmol/L (3.5-5.1) Chloride Level 96 mmol/L (98-107) Carbon Dioxide Level 27 mmol/L (21-32) Anion Gap 10 (6-14) Blood Urea Nitrogen 7 mg/dL (8-26) Creatinine 0.9 mg/dL (0.7-1.3) Estimated GFR (Cockcroft-Gault) 82.3 BUN/Creatinine Ratio 8 (6-20) Glucose Level 102 mg/dL (70-99) Calcium Level 8.4 mg/dL (8.5-10.1) Magnesium Level 2.1 mg/dL (1.8-2.4) Total Bilirubin 0.4 mg/dL (0.2-1.0) Aspartate Amino Transf (AST/SGOT) 24 U/L (15-37) Alanine Aminotransferase (ALT/SGPT) 33 U/L (16-63) Alkaline Phosphatase 74 U/L (46-116) Troponin I High Sensitivity 18 ng/L (4-75) 19 ng/L (4-75) PX-Bpv-D-Type Natriuretic Peptide 13131 pg/mL (0-449) Total Protein 7.2 g/dL (6.4-8.2) Albumin 3.4 g/dL (3.4-5.0) Albumin/Globulin Ratio 0.9 (1.0-1.7) Triglycerides Level 63 mg/dL (0-150) Cholesterol Level 115 mg/dL (0-200) LDL Cholesterol, Calculated 67 mg/dL (0-100) VLDL Cholesterol, Calculated 13 mg/dL (0-40) Non-HDL Cholesterol Calculated 80 mg/dL (0-129) HDL Cholesterol 35 mg/dL (40-60) Cholesterol/HDL Ratio 3.3 Thyroid Stimulating Hormone (TSH) 1.891 uIU/mL (0.358-3.74) Body Fluid Lactate Dehydrogenase 82 IU/L (.) Test 10/06/21 14:26 10/07/21 10:27 Body Fluid Total Protein 2.9 g/dL (.) Urine Collection Type Unknown Urine Color Yellow Urine Clarity Clear Urine pH 7.0 (<5.0-8.0) Urine Specific [place] 1.015 (1.000-1.030) Urine Protein Negative mg/dL (NEG-TRACE) Urine Glucose (UA) Negative mg/dL (NEG) Urine Ketones (Stick) Negative mg/dL (NEG) Urine Blood Negative (NEG) Urine Nitrite Negative (NEG) Urine Bilirubin Negative (NEG) Urine Urobilinogen Dipstick 0.2 mg/dL (0.2 mg/dL) Urine Leukocyte Esterase Negative (NEG) Urine RBC Occ /HPF (0-2) Urine WBC 0 /HPF (0-4) Urine Squamous Epithelial Cells Occ /LPF Urine Bacteria 0 /HPF (0-FEW) Laboratory Tests Test 10/06/21 14:00 10/06/21 14:26 10/07/21 10:27 Body Fluid Lactate Dehydrogenase 82 IU/L (.) Body Fluid Total Protein 2.9 g/dL (.) Urine Collection Type Unknown Urine Color Yellow Urine Clarity Clear Urine pH 7.0 (<5.0-8.0) Urine Specific [place] 1.015 (1.000-1.030) Urine Protein Negative mg/dL (NEG-TRACE) Urine Glucose (UA) Negative mg/dL (NEG) Urine Ketones (Stick) Negative mg/dL (NEG) Urine Blood Negative (NEG) Urine Nitrite Negative (NEG) Urine Bilirubin Negative (NEG) Urine Urobilinogen Dipstick 0.2 mg/dL (0.2 mg/dL) Urine Leukocyte Esterase Negative (NEG) Urine RBC Occ /HPF (0-2) Urine WBC 0 /HPF (0-4) Urine Squamous Epithelial Cells Occ /LPF Urine Bacteria 0 /HPF (0-FEW) Microbiology 10/06/21 Gram Stain - Final, Resulted 10/06/21 Aerobic and Anaerobic Culture - Preliminary, Resulted Medications Current Medications Iohexol (Omnipaque 350 Mg/ml) 100 ml 1X ONCE IV Last administered on 10/05/21at 18:12; Start 10/05/21 at 18:00; Stop 10/05/21 at 18:01; Status DC Furosemide (Lasix) 40 mg 1X ONCE IVP Last administered on 10/05/21at 19:19; Start 10/05/21 at 19:15; Stop 10/05/21 at 19:16; Status DC Aspirin (Ecotrin) 325 mg 1X ONCE PO Last administered on 10/05/21at 19:18; Start 10/05/21 at 19:15; Stop 10/05/21 at 19:16; Status DC Influenza Virus Vaccine Quadrival (Flulaval Quad [id number] Syringe) 0.5 ml ONCE ONCE VAX IM ; Start 10/06/21 at 09:00; Stop 10/06/21 at 09:01; Status DC Ondansetron HCl (Zofran) 4 mg PRN Q6HRS PRN IVP NAUSEA/VOMITING 1ST CHOICE; Start 10/06/21 at 00:00 Calcium Carbonate/ Glycine (Tums) 500 mg PRN Q3HRS PRN PO UPSET STOMACH; Start 10/06/21 at 00:00 Zolpidem Tartrate (Ambien) 5 mg PRN QHS PRN PO INSOMNIA, MAY REPEAT IN 1HR; Start 10/06/21 at 00:00 Info (Non-Icu Electrolyte Protocol) 1 ea PRN DAILY PRN MC SEE COMMENTS; Start 10/06/21 at 00:00 Oxycodone/ Acetaminophen (Percocet 5/325) 1 tab PRN Q4HRS PRN PO MILD PAIN, 1ST CHOICE; Start 10/06/21 at 00:00 Oxycodone/ Acetaminophen (Percocet 5/325) 2 tab PRN Q4HRS PRN PO MODERATE PAIN, SEVERE PAIN; Start 10/06/21 at 00:00 Acetaminophen (Tylenol) 650 mg PRN Q6HRS PRN PO Headaches, Temp > 101.5F; Start 10/06/21 at 00:00 Senna/Docusate Sodium (Senna Plus) 1 tab BID PO Last administered on 10/07/21at 08:21; Start 10/06/21 at 09:00 Heparin Sodium (Porcine) (Heparin Sodium) 5,000 unit Q8HRS SQ Last administered on 10/07/21at 06:00; Start 10/06/21 at 06:00 Ceftriaxone Sodium (Rocephin) 1 gm Q24H IVP Last administered on 10/06/21at 02:19; Start 10/06/21 at 00:00; Stop 10/06/21 at 10:28; Status DC Doxycycline Hyclate (Vibra-Tab) 100 mg BID PO Last administered on 10/06/21at 10:19; Start 10/06/21 at 09:00; Stop 10/06/21 at 10:28; Status DC Furosemide (Lasix) 40 mg 1X ONCE IVP Last administered on 10/06/21at 02:20; Start 10/06/21 at 00:00; Stop 10/06/21 at 00:01; Status DC Furosemide (Lasix) 40 mg 1X ONCE IVP ; Start 10/06/21 at 11:00; Stop 10/06/21 at 11:01; Status DC Furosemide (Lasix) 40 mg DAILY IVP Last administered on 10/07/21at 08:20; Start 10/07/21 at 09:00 Carvedilol (Coreg) 3.125 mg BIDWMEALS PO Last administered on 10/07/21 08:22; Start 10/06/21 at 17:00 Aspirin (Ecotrin) 81 mg DAILYWBKFT PO Last administered on 10/07/21 08:21; Start 10/06/21 at 11:00 Lisinopril (Prinivil) 2.5 mg DAILY PO Last administered on 10/07/21at 08:21; Start 10/07/21 at 09:00 Vitals/I & O Vital Sign - Last 24 Hours 10/06/21 10/06/21 10/06/21 10/06/21 14:25 14:36 14:43 15:00 Temp 97.2 97.2 Pulse 89 89 88 88 Resp 19 17 14 18 B/P (MAP) 124/73 (90) 133/83 (100) 136/85 (102) 130/98 (109) Pulse Ox 97 98 98 91 O2 Delivery Room Air Room Air Room Air 10/06/21 10/06/21 10/06/21 10/06/21 16:44 19:00 20:00 22:19 Temp 98.1 98.1 98.1 98.1 Pulse 88 88 76 Resp 18 18 B/P (MAP) 130/98 131/86 (101) 121/76 (91) Pulse Ox 94 94 O2 Delivery Room Air Room Air Room Air 10/07/21 10/07/21 10/07/21 10/07/21 02:25 07:00 08:00 08:21 Temp 97.8 98.0 97.8 98.0 Pulse 70 81 70 Resp 18 19 B/P (MAP) 124/86 (99) 109/60 (76) 124/86 Pulse Ox 93 93 O2 Delivery Room Air Room Air Room Air 10/07/21 10/07/21 08:22 11:00 Temp 97.6 97.6 Pulse 70 73 Resp 18 B/P (MAP) 124/86 129/73 (91) Pulse Ox 92 O2 Delivery Room Air Intake and Output 10/06/21 10/06/21 10/07/21 15:00 23:00 07:00 Intake Total 700 ml 100 ml 300 ml Output Total 2450 ml 350 ml Balance -1750 ml 100 ml -50 ml Justifications for Admission Other Justification JARRET WEST MD Oct 07, 2021 13:22
[2021-10-07 15:00] VITALS: BP 112/70
--- NOTE | 2021-10-07 17:05 | PDOC ---
[facility] PROGRESS NOTE Date of Service DOS: DATE: 10/07/21 TIME: 17:03 Chief Complaint Chief Complaint Probable new onset heart failure Bilateral pleural effusions greater on the left than the right Bundle branch block History of splenectomy Advanced age History of Present Illness History of Present Illness 10/07/2021 - no event cont current Patient seen and examined Chart reviewed He had pleural effusions He is s/p left thoracentesis yesterday, feels OK cardiac cath saturday Vitals/I&O Vitals/I&O: Vital Signs Date Time Temp Pulse Resp B/P (MAP) Pulse Ox O2 Delivery O2 Flow Rate FiO2 10/07/21 15:00 97.9 68 18 112/70 (84) 92 Room Air 97.9 I & O 10/06/21 10/06/21 10/07/21 15:00 23:00 07:00 Intake Total 700 ml 100 ml 300 ml Output Total 2450 ml 350 ml Balance -1750 ml 100 ml -50 ml Physical Exam General: Alert, Oriented X3, Cooperative, No acute distress Heart: Regular rate, No murmurs Lungs: Crackles Abdomen: Normal bowel sounds Extremities: No cyanosis, Other Skin: No breakdown, No significant lesion Labs Labs: Laboratory Tests Test 10/07/21 10:27 Urine Collection Type Unknown Urine Color Yellow Urine Clarity Clear Urine pH 7.0 (<5.0-8.0) Urine Specific [place] 1.015 (1.000-1.030) Urine Protein Negative mg/dL (NEG-TRACE) Urine Glucose (UA) Negative mg/dL (NEG) Urine Ketones (Stick) Negative mg/dL (NEG) Urine Blood Negative (NEG) Urine Nitrite Negative (NEG) Urine Bilirubin Negative (NEG) Urine Urobilinogen Dipstick 0.2 mg/dL (0.2 mg/dL) Urine Leukocyte Esterase Negative (NEG) Urine RBC Occ /HPF (0-2) Urine WBC 0 /HPF (0-4) Urine Squamous Epithelial Cells Occ /LPF Urine Bacteria 0 /HPF (0-FEW) Assessment and Plan Assessmemt and Plan Problems Medical Problems: (1) Left bundle branch block (LBBB) on electrocardiogram Status: Acute (2) New onset of congestive heart failure Status: Acute Comment Review of Relevant I have reviewed the following items shanthi (where applicable) has been applied. Medications: Current Medications Medications (Trade) Dose Ordered Sig/Jesse Route PRN Reason Start Time Stop Time Status Last Admin Dose Admin Furosemide (Lasix) 40 mg DAILY IVP 10/07/21 09:00 10/07/21 08:20 Lisinopril (Prinivil) 2.5 mg DAILY PO 10/07/21 09:00 10/07/21 08:21 Justifications for Admission Other Justification YUE DASILVA MD Oct 07, 2021 17:05
[2021-10-07 19:00] VITALS: BP 125/80
[2021-10-07 23:00] VITALS: BP 106/72
[2021-10-08 03:08] VITALS: BP 117/84
[2021-10-08] MEDS: HEPARIN for SUB-Q USE 5,000 UNIT/ML VIAL. SQ SCH ×3 (06:33→22:27)
--- NOTE | 2021-10-08 06:41 | PDOC ---
PULMONARY PROGRESS NOTES DATE: 10/08/21 TIME: 06:39 Subjective on RA denies sob cough cp s/p thoracentesis 10/06 1.2 pleural fluid evacuated Vitals Vital Signs Date Time Temp Pulse Resp B/P (MAP) Pulse Ox O2 Delivery O2 Flow Rate FiO2 10/08/21 03:08 97.7 72 18 117/84 (95) 97 Room Air 97.7 ROS: No Nausea, No Chest Pain General: Alert HEENT: Other (nc at ) Lungs: Crackles Cardiovascular: S1, S2 Abdomen: Soft Neuro Exam: Alert Skin: Warm Labs Laboratory Tests Test 10/06/21 14:00 10/06/21 14:26 10/07/21 10:27 Body Fluid Lactate Dehydrogenase 82 IU/L (.) Body Fluid Total Protein 2.9 g/dL (.) Urine Collection Type Unknown Urine Color Yellow Urine Clarity Clear Urine pH 7.0 (<5.0-8.0) Urine Specific [place] 1.015 (1.000-1.030) Urine Protein Negative mg/dL (NEG-TRACE) Urine Glucose (UA) Negative mg/dL (NEG) Urine Ketones (Stick) Negative mg/dL (NEG) Urine Blood Negative (NEG) Urine Nitrite Negative (NEG) Urine Bilirubin Negative (NEG) Urine Urobilinogen Dipstick 0.2 mg/dL (0.2 mg/dL) Urine Leukocyte Esterase Negative (NEG) Urine RBC Occ /HPF (0-2) Urine WBC 0 /HPF (0-4) Urine Squamous Epithelial Cells Occ /LPF Urine Bacteria 0 /HPF (0-FEW) Laboratory Tests Test 10/07/21 10:27 Urine Collection Type Unknown Urine Color Yellow Urine Clarity Clear Urine pH 7.0 (<5.0-8.0) Urine Specific [place] 1.015 (1.000-1.030) Urine Protein Negative mg/dL (NEG-TRACE) Urine Glucose (UA) Negative mg/dL (NEG) Urine Ketones (Stick) Negative mg/dL (NEG) Urine Blood Negative (NEG) Urine Nitrite Negative (NEG) Urine Bilirubin Negative (NEG) Urine Urobilinogen Dipstick 0.2 mg/dL (0.2 mg/dL) Urine Leukocyte Esterase Negative (NEG) Urine RBC Occ /HPF (0-2) Urine WBC 0 /HPF (0-4) Urine Squamous Epithelial Cells Occ /LPF Urine Bacteria 0 /HPF (0-FEW) Impression . IMPRESSION: 1. Dyspnea, which has been progressive in the last several weeks. This is secondary to acute systolic congestive heart failure. This is a patient who has an ejection fraction of 20%. 2. Severe cardiomyopathy with an ejection fraction of 20%. 3. Abnormal CT chest with bilateral pleural effusions. This is likely transudative effusions from congestive heart failure, slightly more on the left than on the right. Radiologist reported large effusion on the left. In my opinion, this is mild to moderate and a small effusion on the right. 4. No significant tobacco history. Plan . 10/08 1. LHC on saturday . His ejection fraction is 20%. 2. lasix keep I<O monitor k, cr 3. s/p thoracentesis 10/06 1.2 pleural fluid evacuated fu pleural fluid studies . transudate per total protein serum ldh not sent suspect 2/2 chf 4. monitor off antibiotics. 5. Continue subcutaneous heparin for DVT prophylaxis. 6. Discussed with pt and we will follow along with you. RECOMMENDATIONS: 1. LHC on saturday . His ejection fraction is 20%. 2. Continue diuresis while monitoring renal function. 3. s/p thoracentesis 10/06 1.2 pleural fluid evacuated fu pleural fluid studies . 4. monitor off antibiotics. 5. Continue subcutaneous heparin for DVT prophylaxis. 6. Discussed with pt and we will follow along with you. HARLEY CALABRESE MD Oct 08, 2021 06:41
[2021-10-08 07:00] VITALS: BP 112/68
[2021-10-08] MEDS: ASPIRIN ENTERIC COATED 81 MG TABLET.DR. PO SCH (07:40)
[2021-10-08] MEDS: FUROSEMIDE 40 MG/4 ML VIAL. IVP SCH (07:40)
[2021-10-08] MEDS: CARVEDILOL 3.125 MG TABLET. PO SCH ×2 (07:40→17:40)
[2021-10-08] MEDS: SENNOSIDES/DOCUSATE 8.6/50MG TABLET. PO SCH ×2 (07:40→22:26)
[2021-10-08] MEDS: LISINOPRIL 5 MG TABLET. PO SCH (07:41)
[2021-10-08 11:00] VITALS: BP 97/66
--- NOTE | 2021-10-08 13:17 | PDOC ---
PROGRESS NOTES Date of Service DATE: 10/08/21 TIME: 13:14 Subjective Subjective Patient seen and examined Objective Objective Vital Signs Date Time Temp Pulse Resp B/P (MAP) Pulse Ox O2 Delivery O2 Flow Rate FiO2 10/08/21 08:00 Room Air 10/08/21 07:41 72 117/84 10/08/21 07:00 97.7 18 94 97.7 Intake and Output 10/08/21 07:00 Intake Total 1050 ml Output Total 550 ml Balance 500 ml Intake Oral 1050 ml Output Urine Total 550 ml Physical Exam Abdomen: Normal bowel sounds Heart: Regular rate General: No acute distress Lungs: Other (Mildly decreased breath sounds) Assessment Assessment Problems Medical Problems: (1) Left bundle branch block (LBBB) on electrocardiogram Status: Acute (2) New onset of congestive heart failure Status: Acute 1. Acute systolic/diastolic CHF: The patient continues to feel better today. We will continue present treatments. Will check morning lab. 2. Cardiomyopathy: EF at 20% . Clinically improved. Plan heart catheterization tomorrow. Risks and benefits discussed with the patient. 3. Bilateral pleural effusion: large on left and moderate to right. Followed by the pulmonary service. Status post thoracentesis. 4. Pulmonary HTN Comment Review of Relevant I have reviewed the following items shanthi (where applicable) has been applied. Labs Laboratory Tests Test 10/06/21 14:00 10/06/21 14:26 10/07/21 10:27 Body Fluid Lactate Dehydrogenase 82 IU/L (.) Body Fluid Total Protein 2.9 g/dL (.) Urine Collection Type Unknown Urine Color Yellow Urine Clarity Clear Urine pH 7.0 (<5.0-8.0) Urine Specific [place] 1.015 (1.000-1.030) Urine Protein Negative mg/dL (NEG-TRACE) Urine Glucose (UA) Negative mg/dL (NEG) Urine Ketones (Stick) Negative mg/dL (NEG) Urine Blood Negative (NEG) Urine Nitrite Negative (NEG) Urine Bilirubin Negative (NEG) Urine Urobilinogen Dipstick 0.2 mg/dL (0.2 mg/dL) Urine Leukocyte Esterase Negative (NEG) Urine RBC Occ /HPF (0-2) Urine WBC 0 /HPF (0-4) Urine Squamous Epithelial Cells Occ /LPF Urine Bacteria 0 /HPF (0-FEW) Microbiology 10/06/21 Gram Stain - Final, Resulted 10/06/21 Aerobic and Anaerobic Culture - Preliminary, Resulted Medications Current Medications Iohexol (Omnipaque 350 Mg/ml) 100 ml 1X ONCE IV Last administered on 10/05/21at 18:12; Start 10/05/21 at 18:00; Stop 10/05/21 at 18:01; Status DC Furosemide (Lasix) 40 mg 1X ONCE IVP Last administered on 10/05/21at 19:19; Start 10/05/21 at 19:15; Stop 10/05/21 at 19:16; Status DC Aspirin (Ecotrin) 325 mg 1X ONCE PO Last administered on 10/05/21at 19:18; Start 10/05/21 at 19:15; Stop 10/05/21 at 19:16; Status DC Influenza Virus Vaccine Quadrival (Flulaval Quad [id number] Syringe) 0.5 ml ONCE ONCE VAX IM ; Start 10/06/21 at 09:00; Stop 10/06/21 at 09:01; Status DC Ondansetron HCl (Zofran) 4 mg PRN Q6HRS PRN IVP NAUSEA/VOMITING 1ST CHOICE; Start 10/06/21 at 00:00 Calcium Carbonate/ Glycine (Tums) 500 mg PRN Q3HRS PRN PO UPSET STOMACH; Start 10/06/21 at 00:00 Zolpidem Tartrate (Ambien) 5 mg PRN QHS PRN PO INSOMNIA, MAY REPEAT IN 1HR; Start 10/06/21 at 00:00 Info (Non-Icu Electrolyte Protocol) 1 ea PRN DAILY PRN MC SEE COMMENTS; Start 10/06/21 at 00:00 Oxycodone/ Acetaminophen (Percocet 5/325) 1 tab PRN Q4HRS PRN PO MILD PAIN, 1ST CHOICE; Start 10/06/21 at 00:00 Oxycodone/ Acetaminophen (Percocet 5/325) 2 tab PRN Q4HRS PRN PO MODERATE PAIN, SEVERE PAIN; Start 10/06/21 at 00:00 Acetaminophen (Tylenol) 650 mg PRN Q6HRS PRN PO Headaches, Temp > 101.5F; Start 10/06/21 at 00:00 Senna/Docusate Sodium (Senna Plus) 1 tab BID PO Last administered on 10/08/21at 07:40; Start 10/06/21 at 09:00 Heparin Sodium (Porcine) (Heparin Sodium) 5,000 unit Q8HRS SQ Last administered on 10/08/21at 06:33; Start 10/06/21 at 06:00 Ceftriaxone Sodium (Rocephin) 1 gm Q24H IVP Last administered on 10/06/21at 02:19; Start 10/06/21 at 00:00; Stop 10/06/21 at 10:28; Status DC Doxycycline Hyclate (Vibra-Tab) 100 mg BID PO Last administered on 10/06/21at 10:19; Start 10/06/21 at 09:00; Stop 10/06/21 at 10:28; Status DC Furosemide (Lasix) 40 mg 1X ONCE IVP Last administered on 10/06/21at 02:20; Start 10/06/21 at 00:00; Stop 10/06/21 at 00:01; Status DC Furosemide (Lasix) 40 mg 1X ONCE IVP ; Start 10/06/21 at 11:00; Stop 10/06/21 at 11:01; Status DC Furosemide (Lasix) 40 mg DAILY IVP Last administered on 10/08/21at 07:40; Start 10/07/21 at 09:00 Carvedilol (Coreg) 3.125 mg BIDWMEALS PO Last administered on 10/08/21 07:40; Start 10/06/21 at 17:00 Aspirin (Ecotrin) 81 mg DAILYWBKFT PO Last administered on 10/08/21 07:40; Start 10/06/21 at 11:00 Lisinopril (Prinivil) 2.5 mg DAILY PO Last administered on 10/08/21at 07:41; Start 10/07/21 at 09:00 Vitals/I & O Vital Sign - Last 24 Hours 10/07/21 10/07/21 10/07/21 10/07/21 15:00 17:16 19:00 20:00 Temp 97.9 97.6 97.9 97.6 Pulse 68 68 73 Resp 18 18 B/P (MAP) 112/70 (84) 112/70 125/80 (95) Pulse Ox 92 95 O2 Delivery Room Air Room Air Room Air 10/07/21 10/08/21 10/08/21 10/08/21 23:00 03:08 07:00 07:40 Temp 97.5 97.7 97.7 97.5 97.7 97.7 Pulse 68 72 72 72 Resp 18 18 18 B/P (MAP) 106/72 (83) 117/84 (95) 112/68 (83) 117/84 Pulse Ox 95 97 94 O2 Delivery Room Air Room Air Room Air 10/08/21 10/08/21 07:41 08:00 Pulse 72 B/P (MAP) 117/84 O2 Delivery Room Air Intake and Output 10/07/21 10/07/21 10/08/21 15:00 23:00 07:00 Intake Total 650 ml 300 ml 100 ml Output Total 200 ml 350 ml Balance 450 ml 300 ml -250 ml Justifications for Admission Other Justification JARRET WEST MD Oct 08, 2021 13:17
[2021-10-08 14:43] VITALS: BP 113/72
--- NOTE | 2021-10-08 15:34 | PDOC ---
[employer] PROGRESS NOTE Date of Service DOS: DATE: 10/08/21 TIME: 15:33 Chief Complaint Chief Complaint Probable new onset heart failure Bilateral pleural effusions greater on the left than the right Bundle branch block History of splenectomy Advanced age History of Present Illness History of Present Illness 10/08, cath in AM cont current Patient seen and examined Chart reviewed He had pleural effusions He is s/p left thoracentesis yesterday, feels OK cardiac cath saturday Vitals/I&O Vitals/I&O: Vital Signs Date Time Temp Pulse Resp B/P (MAP) Pulse Ox O2 Delivery O2 Flow Rate FiO2 10/08/21 14:43 97.1 66 18 113/72 (86) 96 Room Air 97.1 I & O 10/07/21 10/07/21 10/08/21 15:00 23:00 07:00 Intake Total 650 ml 300 ml 100 ml Output Total 200 ml 350 ml Balance 450 ml 300 ml -250 ml Physical Exam General: No acute distress Heart: Regular rate Lungs: Crackles Abdomen: Normal bowel sounds Extremities: No cyanosis, Other Skin: No breakdown, No significant lesion Assessment and Plan Assessmemt and Plan Problems Medical Problems: (1) Left bundle branch block (LBBB) on electrocardiogram Status: Acute (2) New onset of congestive heart failure Status: Acute Comment Review of Relevant I have reviewed the following items shanthi (where applicable) has been applied. Justifications for Admission Other Justification YUE DASILVA MD Oct 08, 2021 15:33
[2021-10-08 19:00] VITALS: BP 123/83
[2021-10-08 22:29] VITALS: BP 112/74
[2021-10-09 02:38] VITALS: BP 113/63
[2021-10-09 05:46] LABS: BASO % 1 % (0-3); EOS # 0.3 x10^3/uL (0.0-0.7); EOS % 6 % (0-3); HEMATOCRIT 41.6 % (39.0-53.0); LYMPH # 1.6 x10^3/uL (1.0-4.8); LYMPH % 32 % (24-48); MEAN CORPUSCULAR HEMOGLOBIN 34 pg (25-35); MEAN CORPUSCULAR HGB CONC 34 g/dL (31-37); MEAN CORPUSCULAR VOLUME 99 fL (79-100); MONO # 1.1 x10^3/uL (0.0-1.1); MONO % 21 % (0-9); NEUT % 40 % (31-73); PLATELET COUNT 287 x10^3/uL (140-400); RED BLOOD COUNT 4.19 x10^6/uL (4.30-5.70); RED CELL DISTRIBUTION WIDTH 14.8 % (11.5-14.5); WHITE BLOOD COUNT 5.1 x10^3/uL (4.0-11.0)
[2021-10-09 05:59] LABS: CALCIUM 7.9 mg/dL (8.5-10.1); CREATININE 0.8 mg/dL (0.7-1.3); GFR 94.2
[2021-10-09] MEDS: HEPARIN for SUB-Q USE 5,000 UNIT/ML VIAL. SQ SCH ×2 (06:00→14:00)
[2021-10-09 06:06] LABS: POTASSIUM 2.9 mmol/L (3.5-5.1)
[2021-10-09] MEDS: ASPIRIN ENTERIC COATED 81 MG TABLET.DR. PO SCH (06:53)
[2021-10-09] MEDS: POTASSIUM CHLORIDE 20 MEQ TABLET.ER. PO SCH ×2 (06:53→09:41)
[2021-10-09] MEDS: CARVEDILOL 3.125 MG TABLET. PO SCH (06:53)
[2021-10-09] MEDS: LISINOPRIL 5 MG TABLET. PO SCH (06:54)
[2021-10-09 07:00] VITALS: BP 123/81
[2021-10-09] MEDS: POTASSIUM CHLORIDE 10MEQ 100 ML IV SCH ×3 (07:24→14:31)
[2021-10-09] MEDS ORDERED: IV NORMAL SALINE 1000ML BAG 1,000 ML IV SCH (07:30)
[2021-10-09] MEDS: SENNOSIDES/DOCUSATE 8.6/50MG TABLET. PO SCH (09:00)
--- NOTE | 2021-10-09 10:27 | PDOC ---
PULMONARY PROGRESS NOTES DATE: 10/09/21 TIME: 10:22 Subjective Patient sitting up in bed this morning, breathing better today Family at bedside Heart Cath today Remains on room air, no new cough Vitals Vital Signs Date Time Temp Pulse Resp B/P (MAP) Pulse Ox O2 Delivery O2 Flow Rate FiO2 10/09/21 08:00 Room Air 10/09/21 07:00 97.5 68 16 123/81 (95) 94 97.5 ROS: No Nausea, No Chest Pain General: Alert HEENT: Other (nc at ) Lungs: Crackles Cardiovascular: S1, S2 Abdomen: Soft Neuro Exam: Alert Skin: Warm Labs Laboratory Tests Test 10/07/21 10:27 10/09/21 04:15 Urine Collection Type Unknown Urine Color Yellow Urine Clarity Clear Urine pH 7.0 (<5.0-8.0) Urine Specific [place] 1.015 (1.000-1.030) Urine Protein Negative mg/dL (NEG-TRACE) Urine Glucose (UA) Negative mg/dL (NEG) Urine Ketones (Stick) Negative mg/dL (NEG) Urine Blood Negative (NEG) Urine Nitrite Negative (NEG) Urine Bilirubin Negative (NEG) Urine Urobilinogen Dipstick 0.2 mg/dL (0.2 mg/dL) Urine Leukocyte Esterase Negative (NEG) Urine RBC Occ /HPF (0-2) Urine WBC 0 /HPF (0-4) Urine Squamous Epithelial Cells Occ /LPF Urine Bacteria 0 /HPF (0-FEW) White Blood Count 5.1 x10^3/uL (4.0-11.0) Red Blood Count 4.19 x10^6/uL (4.30-5.70) Hemoglobin 14.0 g/dL (13.0-17.5) Hematocrit 41.6 % (39.0-53.0) Mean Corpuscular Volume 99 fL (79-100) Mean Corpuscular Hemoglobin 34 pg (25-35) Mean Corpuscular Hemoglobin Concent 34 g/dL (31-37) Red Cell Distribution Width 14.8 % (11.5-14.5) Platelet Count 287 x10^3/uL (140-400) Neutrophils (%) (Auto) 40 % (31-73) Lymphocytes (%) (Auto) 32 % (24-48) Monocytes (%) (Auto) 21 % (0-9) Eosinophils (%) (Auto) 6 % (0-3) Basophils (%) (Auto) 1 % (0-3) Neutrophils # (Auto) 2.0 x10^3/uL (1.8-7.7) Lymphocytes # (Auto) 1.6 x10^3/uL (1.0-4.8) Monocytes # (Auto) 1.1 x10^3/uL (0.0-1.1) Eosinophils # (Auto) 0.3 x10^3/uL (0.0-0.7) Basophils # (Auto) 0.0 x10^3/uL (0.0-0.2) Sodium Level 133 mmol/L (136-145) Potassium Level 2.9 mmol/L (3.5-5.1) Chloride Level 98 mmol/L (98-107) Carbon Dioxide Level 28 mmol/L (21-32) Anion Gap 7 (6-14) Blood Urea Nitrogen 9 mg/dL (8-26) Creatinine 0.8 mg/dL (0.7-1.3) Estimated GFR (Cockcroft-Gault) 94.2 Glucose Level 101 mg/dL (70-99) Calcium Level 7.9 mg/dL (8.5-10.1) Magnesium Level 2.0 mg/dL (1.8-2.4) Laboratory Tests Test 10/09/21 04:15 White Blood Count 5.1 x10^3/uL (4.0-11.0) Red Blood Count 4.19 x10^6/uL (4.30-5.70) Hemoglobin 14.0 g/dL (13.0-17.5) Hematocrit 41.6 % (39.0-53.0) Mean Corpuscular Volume 99 fL (79-100) Mean Corpuscular Hemoglobin 34 pg (25-35) Mean Corpuscular Hemoglobin Concent 34 g/dL (31-37) Red Cell Distribution Width 14.8 % (11.5-14.5) Platelet Count 287 x10^3/uL (140-400) Neutrophils (%) (Auto) 40 % (31-73) Lymphocytes (%) (Auto) 32 % (24-48) Monocytes (%) (Auto) 21 % (0-9) Eosinophils (%) (Auto) 6 % (0-3) Basophils (%) (Auto) 1 % (0-3) Neutrophils # (Auto) 2.0 x10^3/uL (1.8-7.7) Lymphocytes # (Auto) 1.6 x10^3/uL (1.0-4.8) Monocytes # (Auto) 1.1 x10^3/uL (0.0-1.1) Eosinophils # (Auto) 0.3 x10^3/uL (0.0-0.7) Basophils # (Auto) 0.0 x10^3/uL (0.0-0.2) Sodium Level 133 mmol/L (136-145) Potassium Level 2.9 mmol/L (3.5-5.1) Chloride Level 98 mmol/L (98-107) Carbon Dioxide Level 28 mmol/L (21-32) Anion Gap 7 (6-14) Blood Urea Nitrogen 9 mg/dL (8-26) Creatinine 0.8 mg/dL (0.7-1.3) Estimated GFR (Cockcroft-Gault) 94.2 Glucose Level 101 mg/dL (70-99) Calcium Level 7.9 mg/dL (8.5-10.1) Magnesium Level 2.0 mg/dL (1.8-2.4) Impression . IMPRESSION: 1. Dyspnea, which has been progressive in the last several weeks. This is secondary to acute systolic congestive heart failure. This is a patient who has an ejection fraction of 20%. 2. Severe cardiomyopathy with an ejection fraction of 20%. 3. Abnormal CT chest with bilateral pleural effusions. This is likely transudative effusions from congestive heart failure, slightly more on the left than on the right. Radiologist reported large effusion on the left. In my opinion, this is mild to moderate and a small effusion on the right. 4. No significant tobacco history. Plan . Updated 10/09/2021 1. [facility] today; EF 20% 2. Lasix per Cardio, keep I<O, hold for now 2/2 K+ 2.9 with replacements 3. Pleural fluid studies; transudate per total protein and LDH, suspected 2/2 CHF 4. Continue current heparin SQ for DVT prophylaxis 5. Discussed with patient and staff 10/08 1. [facility] on saturday . His ejection fraction is 20%. 2. lasix keep I<O monitor k, cr 3. s/p thoracentesis 10/06 1.2 pleural fluid evacuated fu pleural fluid studies . transudate per total protein serum ldh not sent suspect 2/2 chf 4. monitor off antibiotics. 5. Continue subcutaneous heparin for DVT prophylaxis. 6. Discussed with pt and we will follow along with you. RECOMMENDATIONS: 1. [facility] on saturday . His ejection fraction is 20%. 2. Continue diuresis while monitoring renal function. 3. s/p thoracentesis 10/06 1.2 pleural fluid evacuated fu pleural fluid studies . 4. monitor off antibiotics. 5. Continue subcutaneous heparin for DVT prophylaxis. 6. Discussed with pt and we will follow along with you. OLEG VEGA MD Oct 09, 2021 10:27
[2021-10-09 10:46] VITALS: BP 108/75
[2021-10-09] MEDS ORDERED: IODIXANOL 320 MG/ML 100 ML VIAL. ONE (10:56)
[2021-10-09] MEDS ORDERED: LIDOCAINE 1% Multi-Dose 20 ML VIAL. ONE (10:56)
--- NOTE | 2021-10-09 11:11 | PDOC ---
[employer] PROGRESS NOTE Date of Service DOS: DATE: 10/09/21 TIME: 11:10 Chief Complaint Chief Complaint Probable new onset heart failure Bilateral pleural effusions greater on the left than the right Bundle branch block History of splenectomy Advanced age History of Present Illness History of Present Illness 10/10/2019 Patient seen and examined He is getting IV potassium and p.o. potassium He is going for cardiac cath later today Discussed with the director of accreditation Discussed with case management Discussed with RN Chart 10/08, cath in AM cont current Patient seen and examined Chart reviewed He had pleural effusions He is s/p left thoracentesis yesterday, feels OK cardiac cath saturday Vitals/I&O Vitals/I&O: Vital Signs Date Time Temp Pulse Resp B/P (MAP) Pulse Ox O2 Delivery O2 Flow Rate FiO2 10/09/21 10:46 97.5 64 17 108/75 (86) 94 Room Air 97.5 I & O 10/08/21 10/08/21 10/09/21 15:00 23:00 07:00 Intake Total 660 ml 500 ml 100 ml Output Total 1300 ml 100 ml 100 ml Balance -640 ml 400 ml 0 ml Physical Exam General: No acute distress Heart: Regular rate Lungs: Crackles Abdomen: Normal bowel sounds Extremities: No cyanosis, Other Skin: No breakdown, No significant lesion Labs Labs: Laboratory Tests Test 10/09/21 04:15 White Blood Count 5.1 x10^3/uL (4.0-11.0) Red Blood Count 4.19 x10^6/uL (4.30-5.70) Hemoglobin 14.0 g/dL (13.0-17.5) Hematocrit 41.6 % (39.0-53.0) Mean Corpuscular Volume 99 fL (79-100) Mean Corpuscular Hemoglobin 34 pg (25-35) Mean Corpuscular Hemoglobin Concent 34 g/dL (31-37) Red Cell Distribution Width 14.8 % (11.5-14.5) Platelet Count 287 x10^3/uL (140-400) Neutrophils (%) (Auto) 40 % (31-73) Lymphocytes (%) (Auto) 32 % (24-48) Monocytes (%) (Auto) 21 % (0-9) Eosinophils (%) (Auto) 6 % (0-3) Basophils (%) (Auto) 1 % (0-3) Neutrophils # (Auto) 2.0 x10^3/uL (1.8-7.7) Lymphocytes # (Auto) 1.6 x10^3/uL (1.0-4.8) Monocytes # (Auto) 1.1 x10^3/uL (0.0-1.1) Eosinophils # (Auto) 0.3 x10^3/uL (0.0-0.7) Basophils # (Auto) 0.0 x10^3/uL (0.0-0.2) Sodium Level 133 mmol/L (136-145) Potassium Level 2.9 mmol/L (3.5-5.1) Chloride Level 98 mmol/L (98-107) Carbon Dioxide Level 28 mmol/L (21-32) Anion Gap 7 (6-14) Blood Urea Nitrogen 9 mg/dL (8-26) Creatinine 0.8 mg/dL (0.7-1.3) Estimated GFR (Cockcroft-Gault) 94.2 Glucose Level 101 mg/dL (70-99) Calcium Level 7.9 mg/dL (8.5-10.1) Magnesium Level 2.0 mg/dL (1.8-2.4) Assessment and Plan Assessmemt and Plan Problems Medical Problems: (1) Left bundle branch block (LBBB) on electrocardiogram Status: Acute (2) New onset of congestive heart failure Status: Acute Probable new onset heart failure Bilateral pleural effusions greater on the left than the right Bundle branch block History of splenectomy Advanced age Jared Going for cardiac cath today For now continue potassium replacement Cardiac monitoring Home meds DVT prophylaxis Full code Await cardiac cath report Comment Review of Relevant I have reviewed the following items shanthi (where applicable) has been applied. Medications: Current Medications Medications (Trade) Dose Ordered Sig/Jesse Route PRN Reason Start Time Stop Time Status Last Admin Dose Admin Sodium Chloride 1,000 ml @ 60 mls/hr [id number] IV 10/09/21 07:30 10/09/21 07:30 Potassium Chloride (Klor-Con) 40 meq Q4H PO 10/09/21 06:30 10/09/21 10:31 DC 10/09/21 06:53 Potassium Chloride/Water 100 ml @ 100 mls/hr Q1H IV 10/09/21 08:00 10/09/21 11:59 10/09/21 09:40 Justifications for Admission Other Justification JUSTO CARTWRIGHT III DO Oct 09, 2021 11:11
[2021-10-09] MEDS ORDERED: fentaNYL PF VIAL 100 MCG/2 ML VIAL ONE (11:21)
[2021-10-09] MEDS ORDERED: MIDAZOLAM HCL/PF 5 MG/5 ML VIAL. ONE (11:22)
--- NOTE | 2021-10-09 11:25 | PDOC ---
MODERATE SEDATION ASSESSMENT RISKS/ALTERNATIVES Risks/Alternatives Risks and alternatives of this type of sedation and procedure discussed with: RISK/ALTERNATIVES: Patient H & P ON CHART H & P H & P on chart and reviewed for co-morbid conditions and appropriate labs. H&P ON CHART: Yes STATUS PREG STATUS ASSESSED: N/A MEDS/ALLERGIES REVIEWED Meds/Allergies Reviewed Medications and Allergies including time and route of recently administered narcotics and sedatives. MEDS/ALLERGIES REVIEWED: Yes ASA RATING ASA RATING: II AIRWAY ASSESSMENT Airway Assessment Airway patency, oral function limitations, presence of caps, crowns, dentures, partials, and ability to extend neck assessed. AIRWAY ASSESSMENT: Yes MALLAMPATI SCORE MALLAMPATI SCORE: II PRE-SEDATION ASSESSMENT PRE-SEDATION ASSESSMENT: Yes JARRET WEST MD Oct 09, 2021 11:25
[2021-10-09] MEDS ORDERED: fentaNYL PF VIAL 100 MCG/2 ML VIAL IV ONE (11:30)
[2021-10-09] MEDS ORDERED: IODIXANOL 320 MG/ML 100 ML VIAL. IART ONE (11:30)
[2021-10-09] MEDS ORDERED: LIDOCAINE 1% Multi-Dose 20 ML VIAL. INJ ONE (11:30)
[2021-10-09] MEDS ORDERED: MIDAZOLAM HCL/PF 5 MG/5 ML VIAL. IV ONE (11:30)
[2021-10-09] MEDS ORDERED: CONTRAST GIVEN. MC PRN (12:00)
[2021-10-09] MEDS ORDERED: HEPARIN 25,000UTS/250ML PREMIX 250 ML IV ONE (12:09)
[2021-10-09] MEDS ORDERED: HEPARIN for IV BOLUS 10,000 UNIT/10 ML VIAL. ONE (12:18)
[2021-10-09] MEDS ORDERED: HEPARIN 25,000UTS/250ML PREMIX 250 ML IV PRN (12:30)
[2021-10-09] MEDS ORDERED: HEPARIN for IV BOLUS 10,000 UNIT/10 ML VIAL. IV PRN (12:30)
[2021-10-09] MEDS ORDERED: HEPARIN for IV BOLUS 10,000 UNIT/10 ML VIAL. IV ONE (12:30)
--- NOTE | 2021-10-09 13:13 | CARD ---
MR#: [id number] Date of Study: 10/09/2021 Ordering Physician: JARRET DEY, Referring Physician: JARRET DEY, Tech: Clau Benavides RT(R) APPROVED REPORT Procedures. Selective coronary angiogram. The patient is a 75-year-old male who was admitted for heart failure. Echocardiogram showed an eject ion fraction of 20%. THe patient was diuresed. He denied chest pain. He gradually improved and was scheduled for heart catheterization to exclude coronary artery disease as the etiology of his decrea sed ejection fraction. Risks and benefits of cardiac catheterization and possible intervention were discussed. The patient gave consent to proceed with heart catheterization and possible intervention. After informed consent was obtained the patient was brought to the heart catheterization lab. The ar ea the right femoral artery was prepared in the usual manner with Betadine, sterile draping and local anesthetic. An 18-gauge needle was used to enter the right femoral artery, a wire placed and a 6 Fr ench sheath placed over the wire. A 6 [place] JL4 diagnostic catheter was advanced over a guidewire a nd used to engage the left system. Sequential injections in various views were obtained. A 6 [place] Fu[place] right diagnostic catheter was used in a similar manner to engage the right coronary artery system. Sequential injections in various views were obtained. The catheters were removed from the p atient. The sheath was sutured into place. The patient was placed on a heparin drip. He was then m dorian to the intensive care unit. There were no immediate complications. Findings. Hemodynamics. Aortic root pressure 122/68. Coronaries. Left main. The left main appeared to be a normal size vessel. It had a greater than 90% distal lesi on. LAD. The LAD was a moderate size vessel. It had a proximal 75% lesion and a mid 90% lesion. Left circumflex. The left circumflex was proximally occluded. Right coronary artery. The right coronary artery was a moderate to moderately large vessel. It had a proximal 35% lesion and mid greater than 70% lesion. There was collateralization to the left syste m. <Conclusion> Severe three-vessel coronary artery disease including a severe left main lesion. Known decreased ejection fraction based on ECHO 3 days prior to the procedure. The patient remained stable throughout the procedure with no arrhythmias, decreased blood pressure or chest pain. The patient will be transferred to [facility] for probable bypass surgery. Results and recommendations were discussed with both the patient and his family. Moderate sedation time of 6.2 minutes. Fluoroscopy time of 2.2 minutes. Dose of 30 4Gycm2 Contrast of 57 cc of visi. All protective devices were used during the procedure. The patient was independently monitored during the procedure. Estimated blood loss of 15 cc. Signed by : Jarret Dey MD Electronically Approved : 10/09/2021 13:12:58
[2021-10-09] MEDS: FUROSEMIDE 40 MG/4 ML VIAL. IVP SCH (14:31)
[2021-10-09 15:00] VITALS: BP_SYST 126; BP_SYST 147; BP_DIAS 57; BP_DIAS 84
[2021-10-09 15:20] LABS: CALCIUM 7.8 mg/dL (8.5-10.1); CREATININE 0.7 mg/dL (0.7-1.3); GFR 109.9
--- NOTE | 2021-10-10 11:01 | RAD ---
MR#: [id number] Date of Study: 10/09/2021 Ordering Physician: TATIANNA TIDWELL, Referring Physician: TATIANNA TIDWELL, Tech: Luís Frances MBA, RDMS, RVT, RDCS, RTR APPROVED REPORT Patient Location: IN-PATIENT Indications PRE-OP CABG Vein Measurements Great Saphenous Small Saphenous RightLeft RightLeft Saph-Fem. Junction 3.30mm4.90mmProximal 2.50mm Mid Thigh 2.60mm2.90mmMid 1.40mm Distal Thigh 2.70mm3.40mmDistal 1.80mm Proximal Calf 3.10mm2.70mm Mid Calf 2.40mm2.00mm Distal Calf 3.20mm2.10mm Findings Grayscale images and color duplex analysis was performed on bilateral greater saphenous and left esse r saphenous veins for vein mapping prior to coronary artery bypass surgery. No evidence of thrombus noted. The measurements are as noted above. Critical Notification Critical Value: No <Conclusion> Venous mapping prior to coronary artery bypass surgery of bilateral greater saphenous and left lesser saphenous veins showed measurements as noted above. Signed by : Lloyd Herrera, Electronically Approved : 10/10/2021 11:00:48
--- NOTE | 2021-10-10 11:04 | RAD ---
MR#: [id number] Date of Study: 10/09/2021 Ordering Physician: TATIANNA TIDWELL, Referring Physician: TATIANNA TIDWELL, Tech: Luís Frances MBA, RDMS, RVT, RDCS, RTR APPROVED REPORT Patient Location: IN-PATIENT Laterality:Bilateral Indications PRE-OP CABG Doppler Spectral Velocity Analysis Right Left pCCA 57/16 cm/spCCA 87/21 cm/s mCCA 57/20 cm/smCCA 64/21 cm/s dCCA 62/20 cm/sdCCA 67/20 cm/s Bulb 83/24 cm/sBulb 63/25 cm/s ECA 71/ cm/sECA 76/ cm/s pICA 61/20 cm/spICA 61/24 cm/s [place] 58/22 cm/smICA 69/28 cm/s dICA 50/21 cm/sdICA 58/29 cm/s Vert. 24/ cm/sVert. 30/ cm/s Subcl. 65/ cm/sSubcl. 48/ cm/s ICA/CCA 0.98ICA/CCA 0.79 Findings Grayscale images of extracranial carotid arteries bilaterally showed mild to moderate atherosclerotic plaque in both carotid bulbs. Spectral waveform and color duplex analysis showed normal velocities in bilateral common, internal and external carotid arteries consistent with 0 to less than 50% stenos is. The ICA to CCA ratios were within normal limits bilaterally. The vertebral arteries showed ante grade flow with normal velocities. No significant carotid artery stenosis was noted. Critical Notification Critical Value: No <Conclusion> Carotid arterial duplex scan did not show any significant carotid artery stenosis. Signed by : Lloyd Herrera, Electronically Approved : 10/10/2021 11:03:41
--- NOTE | 2021-10-10 14:08 | PATHOLOGY ---
Note [facility] Accession Number: [id number] TESTS RESULT FLAG UNITS REF RANGE LAB Clinician Provided Cytology Information No. of containers..01 Other (Miscellaneous) Source: LEFT PLEURAL FLUID DIAGNOSIS: LEFT PLEURAL FLUID NEGATIVE FOR MALIGNANT CELLS. MESOTHELIAL CELLS ARE PRESENT. REACTIVE MESOTHELIAL CELLS ARE PRESENT. THIS INTERPRETATION INCLUDES EVALUATION OF A CELL BLOCK. Signed out by: 02 Tomás Camilo MD, Pathologist NPI- [id number] Performed by: Fanny Fagan, [employer] ([facility]) Gross description: 30ML, YELLOW, HAZY /LCS 10/09/2021 1752 Local FLAG LEGEND: L-Low Normal,H-High Normal,LL-Alert Low,HH-Alert High <-Panic Low,>-Panic High,A-Abnormal,AA-Critical Abnormal Performed at: [facility] [place] [address] [place] [address] Fantasma Gay MD, 02 [facility] [address] [place] [address] Tomás Camilo MD, Specimen Comment: A courtesy copy of this report has been sent to [phone], [phone] Specimen Comment: [id number], Specimen Comment: Report sent to , DR RIVERS / DR RDORIGUEZ Performed at: 01 [facility] [place] [address], [place], [place] [id number] MD Fantasma Gay MD Phone: [phone]
== END 2021-10-09 16:45 | disposition short-term general hospital (02) | DRG 287 ==
LOC: ER 16:59 → 6 SOUTH 19:10 → 1 WEST ICU 10-09 12:18
PROVIDERS: ADMIT Student in an Organized Health Care Education/Training Program; ATTEND Student in an Organized Health Care Education/Training Program
PROC: 0W9B3ZZ Drainage of Left Pleural Cavity, Percutaneous Approach (ICD-10-PCS; 2021-10-06)
PROC: B2111ZZ Fluoroscopy of Multiple Coronary Arteries using Low Osmolar Contrast (ICD-10-PCS; principal; 2021-10-09)
PROC: 4A023N7 Measurement of Cardiac Sampling and Pressure, Left Heart, Percutaneous Approach (ICD-10-PCS; 2021-10-09)
DX: I50.23 Acute on chronic systolic (congestive) heart failure (principal); I42.9 Cardiomyopathy, unspecified; I45.2 Bifascicular block; J91.8 Pleural effusion in other conditions classified elsewhere; I27.20 Pulmonary hypertension, unspecified; R79.89 Other specified abnormal findings of blood chemistry; K21.9 Gastro-esophageal reflux disease without esophagitis; Z82.49 Family history of ischemic heart disease and other diseases of the circulatory system; Z90.81 Acquired absence of spleen; Z20.822 Contact with and (suspected) exposure to COVID-19
CPT/HCPCS: 32555; 36415; 71045; 71275; 80048; 80053; 80061; 81001; 83605; 83615; 83735; 83880; 84157; 84443; 84484; 85025; 85379; 87075; 87426; 93005; 93306; 93454; 93880; 93970; 99152; 99153; J0696; J1644; J1940; J2250; J3010; J3480; J3490; J7030; Q9967; 99285-25; C8929; G0378